=== PATIENT | male | born 1960 | race Caucasian/White ===

== ENCOUNTER 2019-11-22 09:20 | Inpatient (IN) ==
[2019-11-22] MEDS ORDERED: ONDANSETRON INJ 2 MG/ML 2 ML VIAL IV STA ×2 (10:11→12:14)
[2019-11-22] MEDS ORDERED: MoRPHine SULFATE 4 MG/ML 1 ML CARP\\VIAL IV STA ×2 (10:11→11:06)
[2019-11-22] MEDS ORDERED: SODIUM CHLORIDE 0.9% 1000ML 1,000 ML IV SCH (10:12)
[2019-11-22 10:35] LABS: Basophils # (auto) 0.02 K/uL (0-0.2); Basophils % (auto) 0.3 %; Eosinophils # (auto) 0.17 K/uL (0-0.5); Eosinophils % (auto) 2.3 %; Hematocrit (blood only) 36.9 % (42-52); Hemoglobin 12.5 g/dL (14.0-18.0); Immature Granulocytes # (auto) 0.01 K/uL (0.00-0.02); Immature Granulocytes % (auto) 0.1 %; Lymphocytes # (auto) 0.99 K/uL (1.2-3.4); Lymphocytes % (auto) 13.5 %; Mean Corpuscular Hemoglobin 29.4 pg (25-34); Mean Corpuscular Hgb Conc 33.9 g/dL (32-36); Mean Corpuscular Volume 86.8 fL (80-100); Mean Platelet Volume 9.3 fL (7.4-10.4); Monocytes # (auto) 0.63 K/uL (0.11-0.59); Monocytes % (auto) 8.6 %; Neutrophils # (auto) 5.54 K/uL (1.4-6.5); Neutrophils % (auto) 75.2 %; Platelet Count 151 K/uL (130-400); RDW Coefficient of Variation 14.9 % (11.5-14.5); RDW Standard Deviation 47.3 fL (36.4-46.3); Red Blood Count 4.25 M/uL (4.7-6.1); White Blood Count 7.36 K/uL (4.8-10.8)
[2019-11-22 10:37] LABS: Albumin Level 3.9 gm/dl (3.4-5.0); BUN Creatinine Ratio 10.8 (10-20); Calcium 8.7 mg/dl (8.5-10.1); Creatinine Clr Calc Pharmacy 38.4 ml/min; Est GFR (African American) 32.8; Est GFR (Non-African American) 28.3
[2019-11-22 10:40] LABS: Albumin Globulin Ratio 1.1 (0.9-2); Bilirubin,Total 1.7 mg/dl (0.2-1); Globulin 3.4 gm/dl (2.5-4.0); Total Protein 7.3 gm/dl (6.4-8.2)
--- NOTE | 2019-11-22 12:02 | History & Physical Report ---
Date of Service November 22, 2019 Assessment & Plan (1) Left flank pain: Admit to [facility] on telemetry, Vital signs every 4 hours, Continue IV fluid hydration, Consult urology, Final urinary culture is negative, Keep n.p.o. for possible urological procedure, Pain and antinausea management, Discontinue ciprofloxacin which was started in the ER on November 19, DVT prophylaxis SCDs and teds Full code Present on Admission?: Yes (2) Calculus of left ureter: As discussed above (3) Acute on chronic renal insufficiency: Patient has acute on chronic renal insufficiency. Patient baseline creatinine is 1.4-2. He has CKD stage III, Continue IV fluid hydration, Avoid nephrotoxic agents, Continue monitoring creatinine, Resolved underlining problem such as a stone in the ureter and hydronephrosis. Present on Admission?: Yes (4) Elevated prostate specific antigen (PSA): Continue monitoring, Referred to urology Present on Admission?: Yes History of Present Illness Chief Complaint: Left flank pain Primary Care Provider: Marcelino Fuentes MD The patient is a 59 years old male with past medical history of CKD stage III, recurrent nephrolithiasis, elevated prostate-specific antigen who presents to the emergency room with a complaint of left-sided flank pain for 3 days. Patient saw urology on November 20 and he was told to continue p.o. hydration in order to flush out 8 mm distal left ureteral calculus with moderate left hydro- ureteronephrosis. Patient has a history of cystine stones. At that visit patient was agreeable to schedule URS. Urine cultures were also checked and preliminary urine culture showed no growth while the final culture was pending. At that point patient was taking Cipro which was started in the ER. Patient was also given naproxen and Tylenol for pain and he was advised to consider tramadol for moderate pain. He was also recommended to continue Flomax which was p rescribed in the ER. At the end of the visit patient was advised to be seen in the ER if fever, intractable vomiting or pain. Patient denies fever, chills, chest pain, shortness of breath, abdominal pain, frequency, urgency. Labs are reviewed: WBC 7.36, hemoglobin 12.5, hematocrit 36.9, platelets 151, sodium 139, potassium 4, chloride 109, carbon dioxide 24, anion gap 6, BUN 26, creatinine 2.44. Patient baseline creatinine is 1.4 -2. GFR 28.3, glucose 87, calcium 8.7, total bilirubin 1.7, AST 11, ALT 22, alkaline phosphatase 92, total protein 7.3, albumin 3.9, globulin 3.4, prostate-specific antigen from September is 7.91. Urine from November 19 shows trace urine protein, 1+ blood, urine nitrate negative, positive leukocyte Estrace, 2+ positive WBCs over 30, epithelial cells over 30 not a clean-catch. CT pelvis and abdomen shows 8 mm distal left ureteral calculus which results in moderate left hydroureteronephrosis with mild perinephritic infiltration. Left-sided nephrolithiasis. Market right renal atrophy. The decision was made to admit patient to [facility] on telemetry for nephrolithiasis and renal colic. Allergies Allergy/AdvReac Type Severity Reaction Status Date / Time promethazine AdvReac Mild JITTERY,ANX Verified 11/21/19 14:29 IOUS Home Medications Home Medications Medication Instructions Recorded Confirmed Type prednisone 20 mg PO TID 11/12/18 11/22/19 History diphenoxylate-atropine 2.5 1 tab PO QID PRN #30 tab 06/22/19 11/22/19 Rx mg-0.025 mg tablet alfuzosin 10 mg tablet,extended 10 mg PO DAILY #90 tab 11/07/19 11/22/19 Rx release 24 hr ciprofloxacin HCl [Cipro] 500 mg PO Q12H 7 Days #14 tab 11/20/19 11/22/19 Rx naproxen 500 mg PO Q12H PRN #20 tab 11/20/19 11/22/19 Rx ondansetron 4 mg PO Q8H PRN #10 tab 11/20/19 11/22/19 Rx oxycodone 5 mg PO Q6H PRN #12 tab 11/20/19 11/22/19 Rx tamsulosin [Flomax] 0.4 mg PO DAILY #7 cap 11/20/19 11/22/19 Rx Past Med/Surg History Medical History CKD (chronic kidney disease) Crohns disease (Chronic) History of gout Hydronephrosis concurrent with and due to calculi of kidney and ureter Kidney stones (Chronic) Pulmonary emboli Surgical History H/O colectomy (Chronic) H/O cystoscopy for ureteral stones, has had ureteral stents placed before H/O ileostomy (Chronic) Family History Brother , due to stomach cancer Stomach cancer Father Myocardial infarction Mother Breast cancer Sister Pulmonary embolism Other FHx: heart disease Family history of diabetes mellitus Family history of high blood pressure Family history of kidney stones Social History Preferred Language: Hebrew Communication Ability: Effective Environmental Services Aide Required: No Beliefs That Will Affect Care: None Current Living Situation: Spouse Feels Safe at Home: Yes Smoking Status: Never smoker Hx Alcohol Use: No Hx Substance Use: No Review of Systems Review of Systems: All systems reviewed & are unremarkable except as noted in HPI & below Physical Exam Constitutional: WD/WN, vitals as above well developed Eyes: PERRL, conjunctivae normal, anicteric sclerae ENMT: external ear and nose normal, oropharynx normal Neck: trachea midline, no thyromegaly Respiratory: normal respiratory effort, lungs clear to auscultation Cardiovascular: RRR, no murmur, no edema Gastrointestinal (Abdomen): normal bowel sounds, soft, nontender, no hepatosplenomegaly Musculoskeletal: no cyanosis or clubbing, extremities motor strength 5/5 Skin: no rashes, warm and dry Neurologic: patellar DTR's 2+ bilat, sensation intact Psychiatric: A+Ox3, euthymic affect Genitourinary: Left costovertebral angle tenderness Results & Data Vital Signs (Past 12 Hours) Vital Signs Temp Pulse Pulse Resp BP BP Pulse Ox 11/22/19 11:12 60 17 140/74 99 11/22/19 09:28 36.4 C L 64 20 150/87 H 100 Code Status & VTE Plan Code Status Full code VTE Prophylaxis Plan VTE Prophylaxis will be ordered: Yes PG Care Time/CCT Total # of Minutes Spent Total Time Spent with Patient: Total time spent is greater than 50% in coordina tion of care (as documented) at patient's floor/unit and/or counseling patient: Coding Level of Care Code 70606 Initial Inpt Care Lvl 3 Diagnoses Left flank pain R10.9 Calculus of left ureter N20.1 Acute on chronic renal insufficiency N28.9; N18.9 Elevated prostate specific antigen (PSA) R97.20
[2019-11-22] MEDS: HYDROmorphone INJ 0.5 MG/0.5 ML SYR IV PRN ×5 (12:20→22:10)
[2019-11-22] MEDS ORDERED: ACETAMINOPHEN 325 MG TAB PO PRN (17:37)
[2019-11-22] MEDS ORDERED: predniSONE 20 MG TAB PO SCH (17:37)
[2019-11-22] MEDS ORDERED: DIPHENOXYLATE/ATROPINE 2.5/0.025MG TAB PO PRN (17:37)
[2019-11-22] MEDS ORDERED: MAGNESIUM HYDROXIDE SUSP 30 ML UDC PO PRN (17:37)
[2019-11-22] MEDS ORDERED: ALUMINUM/MAGNESIUM SUSP 30 ML UDC PO PRN (17:37)
[2019-11-22] MEDS ORDERED: POLYETHYLENE (MIRALAX) 17 GM PACK PO PRN (17:37)
[2019-11-22] MEDS: SODIUM CHLORIDE 0.9% 1000ML 1,000 ML IV SCH (18:22)
[2019-11-22] MEDS: ONDANSETRON INJ 2 MG/ML 2 ML VIAL IV PRN (18:26)
[2019-11-22] MEDS: TAMSULOSIN HCL 0.4 MG CAP PO SCH (19:15)
[2019-11-23] MEDS: HYDROmorphone INJ 0.5 MG/0.5 ML SYR IV PRN ×5 (00:11→11:00)
[2019-11-23] MEDS: ONDANSETRON INJ 2 MG/ML 2 ML VIAL IV PRN ×2 (02:24→07:36)
[2019-11-23] MEDS: SODIUM CHLORIDE 0.9% 1000ML 1,000 ML IV SCH ×3 (02:25→23:23)
[2019-11-23 07:09] LABS: Basophils # (auto) 0.01 K/uL (0-0.2); Basophils % (auto) 0.1 %; Eosinophils # (auto) 0.12 K/uL (0-0.5); Eosinophils % (auto) 1.3 %; Hemoglobin 12.3 g/dL (14.0-18.0); Immature Granulocytes # (auto) 0.01 K/uL (0.00-0.02); Immature Granulocytes % (auto) 0.1 %; Lymphocytes # (auto) 0.69 K/uL (1.2-3.4); Lymphocytes % (auto) 7.6 %; Mean Corpuscular Hemoglobin 29.3 pg (25-34); Mean Corpuscular Hgb Conc 33.2 g/dL (32-36); Mean Corpuscular Volume 88.1 fL (80-100); Mean Platelet Volume 9.4 fL (7.4-10.4); Monocytes # (auto) 0.68 K/uL (0.11-0.59); Monocytes % (auto) 7.5 %; Neutrophils % (auto) 83.4 %; Platelet Count 137 K/uL (130-400); RDW Coefficient of Variation 14.9 % (11.5-14.5); RDW Standard Deviation 48.1 fL (36.4-46.3); White Blood Count 9.11 K/uL (4.8-10.8)
[2019-11-23 07:48] LABS: Albumin Level 3.4 gm/dl (3.4-5.0); BUN Creatinine Ratio 7.5 (10-20); Calcium 8.3 mg/dl (8.5-10.1); Creatinine Clr Calc Pharmacy 22.9 ml/min; Est GFR (African American) 17.6; Est GFR (Non-African American) 15.2; Potassium 4.4 mmol/L (3.5-5.1)
[2019-11-23 07:51] LABS: Bilirubin,Total 1.9 mg/dl (0.2-1); Globulin 3.4 gm/dl (2.5-4.0); Total Protein 6.8 gm/dl (6.4-8.2)
--- NOTE | 2019-11-23 07:58 | Urology Consultation ---
Date of Consultation November 23, 2019 Assessment & Plan (1) Calculus of distal left ureter: (2) Acute on chronic renal insufficiency: (3) Hydronephrosis of left kidney: 59 year-old male patient admitted with intractable pain and vomiting secondary to 8mm left distal ureteral stone with moderate hydronephrosis. -Keep NPO -Strain all urine -Proceed for intervention today. Findings reviewed with Dr. Ng. Given his intractable pain/vomiting and renal insufficiency in the context of an obstructing 8mm left distal ureteral stone, will proceed with OR for cystoscopy, left retrograde pyelogram and left stent placement, possible ureteroscopy, laser lithotripsy, stone basketing, possible ureteral dilation depending on findings. Risks and benefits to be reviewed with patient by Dr. Ng. OR notified. Preoperative CXR and EKG ordered. Will cover with renal dosing IV Ciprofloxacin preoperatively. Supervising Physician Co-Signing Physician Notes distal stone plan for treatment consent on chart to OR today History of Present Illness Reason for Consultation: nephrolithiasis Attending Physician: Ho Pepe DO History of Present Illness 59 year-old male patient, with past medical history of CKD stage III, recurrent nephrolithiasis, and elevated prostate-specific antigen admitted November 22, 2019 with left flank pain, acute on chronic renal insufficiency, and intractable vomiting. Urology service consulted due to obstructing 8mm left distal ureteral stone. Patient known to [facility] urology, was seen in the office yesterday and scheduled for URS-LL December 04, 2019. Does have history of renal calculi requiring intervention, last URS-LL roughly one year ago. Patient reports he returned home last evening and developed severe left flank/abdomen pain not relieved by PO pain medication. He then started to vomit every 15 minutes on average. Denied fevers. Chart Review: wbc 9.11 hgb 12.3 creatinine 4.08 urinalysis not indicative of infection Urine culture from 11/[address]/abd pelvis impression: 1. 8 mm distal left ureteral calculus which results in moderate left hydroureteronephrosis with mild perinephric infiltration. 2. Left-sided nephrolithiasis. 3. Marked right renal atrophy. Patient examined at bedside. Patient examined at bedside. He is alert, awake, non-toxic appearing. States his pain is not controlled, has been using IV Dilaudid. Pain is located in left flank and extends into lower abdomen. Has been vomiting with elevated pain intermittently throughout the morning. Denies fevers or chills. Denies dysuria or hematuria. Denies frequency but does report hesitancy. He is requesting p rocedure be performed today due to amount of pain. Denies additional acute urologic concerns today. Allergies Allergy/AdvReac Type Severity Reaction Status Date / Time promethazine AdvReac Mild JITTERY,ANX Verified 11/21/19 14:29 IOUS Home Medications Home Medications Medication Instructions Recorded Confirmed Type prednisone 20 mg PO TID 11/12/18 11/22/19 History diphenoxylate-atropine 2.5 1 tab PO QID PRN #30 tab 06/22/19 11/22/19 Rx mg-0.025 mg tablet alfuzosin 10 mg tablet,extended 10 mg PO DAILY #90 tab 11/07/19 11/22/19 Rx release 24 hr ciprofloxacin HCl [Cipro] 500 mg PO Q12H 7 Days #14 tab 11/20/19 11/22/19 Rx naproxen 500 mg PO Q12H PRN #20 tab 11/20/19 11/22/19 Rx ondansetron 4 mg PO Q8H PRN #10 tab 11/20/19 11/22/19 Rx oxycodone 5 mg PO Q6H PRN #12 tab 11/20/19 11/22/19 Rx tamsulosin [Flomax] 0.4 mg PO DAILY #7 cap 11/20/19 11/22/19 Rx Patient History Medical History CKD (chronic kidney disease) Crohns disease (Chronic) History of gout Hydronephrosis concurrent with and due to calculi of kidney and ureter Kidney stones (Chronic) Pulmonary emboli Surgical History H/O colectomy (Chronic) H/O cystoscopy for ureteral stones, has had ureteral stents placed before H/O ileostomy (Chronic) Family History Brother , due to stomach cancer Stomach cancer Father Myocardial infarction Mother Breast cancer Sister Pulmonary embolism Other FHx: heart disease Family history of diabetes mellitus Family history of high blood pressure Family history of kidney stones Social History Preferred Language: South Korean Communication Ability: 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 Beliefs That Will Affect Care: None marital status: Current Living Situation: Spouse Feels Safe at Home: Yes Smoking Status: Never smoker Hx Alcohol Use: No Hx Substance Use: No Review of Systems Constitutional: as per Subjective / HPI; no fever and no chills Respiratory: no cough and no dyspnea Gastrointestinal: as per Subjective / HPI, + nausea and + vomiting Genitourinary: + as per Subjective / HPI Neurologic: no dizziness and no syncope Physical Exam Constitutional: well developed and well nourished; no acute distress and not ill appearing ENMT: Ears: no external ear abnormality Nose: no external nose abnormality Neck: normal visual inspection and trachea midline Respiratory: normal respiratory effort and able to speak in complete sentences; no respiratory distress and no audible wheezes Cardiovascular: Extremities: no calf tenderness and no edema Gastrointestinal (Abdomen): Inspection/Auscultation: abdomen normal to inspection; abdomen not distended Percussion/Palpation: + abdomen tender (Mildly tender to left lower quadrant) and abdomen soft; no guarding Musculoskeletal: Moves all extremities without difficulty. Skin: No visible rashes, lesions, or wounds noted. Neurologic: moves all extremities and awake Psychiatric: Orientation: alert, oriented x 3 and cooperative Affect: euthymic affect Genitourinary: + CVA tenderness (Positive left CVA tenderness) Results & Data Vital Signs (Past 12 Hours) Vital Signs Temp Pulse Pulse Resp BP Pulse Ox 11/23/19 07:14 36.6 C 70 18 118/69 96 11/23/19 06:59 60 11/23/19 03:00 36.5 C 66 20 131/75 97 11/23/19 00:48 55 L 11/22/19 23:00 36.6 C 63 20 149/73 H 96 PG Care Time/CCT Total # of Minutes Spent Total Time Spent with Patient: Total time spent is greater than 50% in coordination of care (as documented) at patient's floor/unit and/or counseling patient: Coding Level of Care Code 86426 Inpt Consult Level 3 Diagnoses Calculus of distal left ureter N20.1 Acute on chronic renal insufficiency N28.9; N18.9 Hydronephrosis of left kidney N13.30
--- NOTE | 2019-11-23 08:29 | XRay Report ---
XR chest 2V PA/lateral CLINICAL HISTORY: 59 years-old Male presenting with preop. TECHNIQUE: PA and lateral views of the chest were obtained. COMPARISON: 09/18/2010. FINDINGS: Cardiomediastinal silhouette normal. Lungs and pleural spaces clear. Degenerative changes of the thor acic spine. Surgical clip may be present in the right axilla. Upper abdomen normal. IMPRESSION: 1. No acute cardiopulmonary disease. ACT 112: Negative or not required by law. Electronically signed by: Bethel Carter M.D. 11/23/2019 8:27 AM
[2019-11-23] MEDS ORDERED: CIPROFLOXACIN / D5W 200 MG/100 ML BAG IV SCH (09:00)
[2019-11-23] MEDS: TAMSULOSIN HCL 0.4 MG CAP PO SCH (11:03)
[2019-11-23] MEDS: ALFUZOSIN HCL 10 MG TAB PO SCH (11:04)
--- NOTE | 2019-11-23 12:43 | Anesthesiology Consultation ---
Date of Service November 23, 2019 Assessment & Plan (1) Encounter for pre-operative examination: Chart Review Chart Review: Acceptable Risk for Surgery Consults Requested none ASA ASA3 Proposed Anesthesia Anesthesia Type: General Risk / Benefits Reviewed With: PT / POA / Parent / Guardian, Accepts Plan and Informed Consent Obtained History Surgery Operation Date: 11/23/19 16:25 Proposed Procedures p Cystoscopy Retrograde Pyelogram, Left Stent Placement, Possible Laser Lithotripsy Basket Extraction - Rich Ng MD Height/Weight Height: 5 ft 10 in Weight: 93 kg Allergies Allergy/AdvReac Type Severity Reaction Status Date / Time promethazine AdvReac Mild JITTERY,ANX Verified 11/21/19 14:29 IOUS Medications Home Medications Medication Instructions Recorded Confirmed Last Taken prednisone 20 mg PO TID 11/12/18 11/22/19 Unknown diphenoxylate-atropine 2.5 1 tab PO QID PRN #30 tab 06/22/19 11/22/19 11/22/19 mg-0.025 mg tablet alfuzosin 10 mg tablet,extended 10 mg PO DAILY #90 tab 11/07/19 11/22/19 Unknown release 24 hr ciprofloxacin HCl [Cipro] 500 mg PO Q12H 7 Days #14 tab 11/20/19 11/22/19 11/22/19 naproxen 500 mg PO Q12H PRN #20 tab 11/20/19 11/22/19 11/22/19 ondansetron 4 mg PO Q8H PRN #10 tab 11/20/19 11/22/19 11/22/19 oxycodone 5 mg PO Q6H PRN #12 tab 11/20/19 11/22/19 11/22/19 tamsulosin [Flomax] 0.4 mg PO DAILY #7 cap 11/20/19 11/22/19 Unknown Active Medications Generic Name Dose Route Start Last Admin Trade Name Freq PRN Reason Stop Dose Admin Alfuzosin HCl 10 mg 11/23/19 09:00 11/23/19 11:04 Uroxatral PO 12/23/19 08:59 10 mg DAILY MEGAN Administration Hydromorphone HCl 0.5 mg 11/22/19 17:37 11/23/19 11:00 Dilaudid IV 12/06/19 17:36 0.5 mg Q2H PRN Administration Pain Sodium Chloride 1,000 mls @ 100 mls/hr 11/22/19 17:37 11/23/19 12:35 Nss 1000ml IV 12/22/19 17:36 Infused .Q10H MEGAN Infusion Ondansetron HCl 4 mg 11/22/19 17:37 11/23/19 07:36 Zofran IV 12/22/19 17:36 4 mg Q4H PRN Administration nausea Tamsulosin HCl 0.4 mg 11/22/19 17:37 11/23/19 11:03 Flomax PO 12/22/19 17:36 0.4 mg DAILY MEGAN Administration NPO Date Last Intake of Fluids: 11/23/19 Time Last Intake of Fluids: 11:09 Last Intake of Fluids Comment: Small sips w/meds. Date Last Intake of Solids: 11/21/19 Time Last Intake of Solids: 00:00 Last Intake of Solids Comment: midnight per report from metal coater RN. Past Medical History Medical History CKD (chronic kidney disease) Crohns disease (Chronic) History of gout Hydronephrosis concurrent with and due to calculi of kidney and ureter Kidney stones (Chronic) Pulmonary emboli Exercise / Class Metabolic Activity II 4-5 Yardwork/Stairs/Walk up hill Past Family History Family History Brother , due to stomach cancer Stomach cancer Father Myocardial infarction Mother Breast cancer Sister Pulmonary embolism Other FHx: heart disease Family history of diabetes mellitus Family history of high blood pressure Family history of kidney stones Past Surgical History Surgical History H/O colectomy (Chronic) H/O cystoscopy for ureteral stones, has had ureteral stents placed before H/O ileostomy (Chronic) Past Anesthesia History No Hx of Anesthesia Complications and No Family Hx of Anesthesia Complications History of PONV No Hx of PONV and No Hx of Motion Sickness Social History Smoking Status: Never smoker Do You Dip or Chew Tobacco: No Hx Alcohol Use: No Hx Substance Use: No Physical Exam Vital Signs Last Vital Signs Temp 98.1 F 11/23/19 11:23 Pulse 69 11/23/19 11:23 Resp 18 11/23/19 11:23 BP 133/69 11/23/19 11:23 Pulse Ox 99 11/23/19 11:23 ENMT Mouth: no dentition abnormality Thyromental Distance: > or= 3.5 Finger Breadths Mallampati Class: II Neck normal visual inspection Respiratory normal respiratory effort Auscultation: lungs clear to auscultation bilaterally Cardiovascular Rate/Rhythm: regular rate and regular rhythm Testing Laboratory Results 11/23/19 06:23 11/23/19 06:23 Electrocardiogram Date: 11/13/19 Sinus bradycardia, rate 56 bpm Otherwise normal ECG When compared with ECG of 14-DEC-2014 09:49, No significant change was found Confirmed by Silver Hopkins ([id number]) on 11/14/2018 5:17:26 PM Chest X-Ray Date: 11/23/19 Findings: + NAD
[2019-11-23] MEDS ORDERED: fentaNYL citrate 100 MCG/2 ML VIAL IV PRN (12:53)
[2019-11-23] MEDS ORDERED: ePHEDrine sulfate 50 MG/ML AMP IV PRN (12:53)
[2019-11-23] MEDS ORDERED: ONDANSETRON INJ 2 MG/ML 2 ML VIAL IV PRN (12:53)
[2019-11-23] MEDS ORDERED: ATROPINE SULFATE 0.1 MG/ML 10ML SYR IV PRN (12:53)
[2019-11-23] MEDS ORDERED: ONDANSETRON INJ 2 MG/ML 2 ML VIAL ONE (13:38)
[2019-11-23] MEDS ORDERED: DEXAMETHASONE SOD INJ 4 MG/ML VIAL ONE (13:38)
[2019-11-23] MEDS ORDERED: PROPOFOL IV EMULSION 10 MG/ML 20 ML VIAL IV ONE (13:38)
[2019-11-23] MEDS ORDERED: fentaNYL citrate 100 MCG/2 ML VIAL ONE (13:38)
[2019-11-23] MEDS ORDERED: LIDOCAINE HCL 2% 2 ML VIAL/AMP(20MG/ML) INFIL ONE (13:38)
[2019-11-23] MEDS ORDERED: NEOSTIGMINE METHYLSULFATE 5 MG/5 ML SYR ONE (13:38)
[2019-11-23] MEDS ORDERED: MIDAZOLAM HCL 1 MG/ML 2ML VIAL ONE (13:38)
[2019-11-23] MEDS ORDERED: GLYCOPYRROLATE 0.2 MG/ML VIAL ONE (13:38)
[2019-11-23] MEDS ORDERED: IOTHALAMATE MEGLUMINE II 17.2% 250 ML VIAL ONE (13:41)
--- NOTE | 2019-11-23 15:07 | Fluoroscopy Report ---
FL retrograde includes kub CLINICAL HISTORY: 59 years-old Male presenting with CYSTO. TECHNIQUE: 1 fluoroscopic image(s) recorded as part of an intraoperative procedure. COMPARISON: CT performed on 11/20/2019. FINDINGS/IMPRESSION: Interval placement of a left ureteral stent. Please see surgical report for further details. Dose area product (mGy.cm^2): 0.5594. Fluoroscopy time: 3.8 seconds. Number or time of high level fluoroscopy (HLF), digital spot, or digital subtraction images: 0. ACT 112: Negative or not required by law. Results electronically sent 11/23/2019 3:06 PM to: Rich Ng MD Electronically signed by: Bethel Carter M.D. 11/23/2019 3:06 PM
--- NOTE | 2019-11-23 15:24 | Operative Report ---
PG Post Operative Report Pre & Post Diagnosis Operation Date: 11/23/19 16:25 Pre-Op Diagnosis: NEPHROLITHIASIS Post-Op Diagnosis: NEPHROLITHIASIS I identified the patient and participated in the time-out.: Yes Procedure Operation Date: 11/23/19 16:25 Actual Procedures p Cystoscopy Retrograde Pyelogram, Left Stent Placement, Laser Lithotripsy (Left) - Rich Ng MD Surgeon Silver Ng MD Manager Clinical Applications None Estimated Blood Loss 0 Findings Consistent with Post-Op Diagnosis Specimens Stone for chemical analysis Description of Procedure The patient was identified in the preoperative holding area, appropriate informed consents were reviewed and completed and the patient was transferred to the operative suite. Upon arrival, appropriate antibiotics and anesthesia were administered and the patient was placed in dorsal lithotomy position and prepped and draped in sterile fashion. To begin the case I passed a 22 Jamaican cystoscope with 30 degree lens. Inspection revealed a healthy-appearing urethra and moderate enlargement of the prostate. Inspection of the bladder revealed healthy mucosa without tumors. I turned my attention to the left UO which was notably bulged. I cannulated with a sensor wire which immediately resulted in an output of old urine from the left ureteral orifice. After draining this area I passed a semirigid ureteroscope alongside the wire and encountered a large calculus in the extreme distal aspect of the ureter. I passed a laser fiber and fragmented it irrigating all pieces out of the ureter. In conclusion I placed a 6 Jamaican by 26 cm double-J ureteral stent seeing a good curl in the kidney as well as the bladder. I decompressed the bladder and irrigated several pieces out which was subsequently passed off the table as a specimen for chemical analysis. Case was concluded and he was extubated and taken to the PACU in stable condition. There were no comp lications. I attest to the content of the Intraoperative Record and any orders documented therein. Any exceptions are noted below.
--- NOTE | 2019-11-23 15:26 | History & Physical Report ---
Date of Service November 23, 2019 Assessment & Plan (1) Meatal stenosis: (2) Urethral stricture: Plan for meatotomy/meatoplasty/cystoscopy/DVIU Risks, benefits, alternatives discussedpatient ready to move forward with the surgery History of Present Illness Primary Care Provider: Marcelino Fuentes MD long history of meatal stenosis as well as urethral strictures He is recently experienced increasing symptoms and noted to have a very tight meatus during office examination He returns today for meatotomy/meatoplasty and possible DVIU Allergies Allergy/AdvReac Type Severity Reaction Status Date / Time promethazine AdvReac Mild JITTERY,ANX Verified 11/21/19 14:29 IOUS Home Medications Home Medications Medication Instructions Recorded Confirmed Type prednisone 20 mg PO TID 11/12/18 11/22/19 History diphenoxylate-atropine 2.5 1 tab PO QID PRN #30 tab 06/22/19 11/22/19 Rx mg-0.025 mg tablet alfuzosin 10 mg tablet,extended 10 mg PO DAILY #90 tab 11/07/19 11/22/19 Rx release 24 hr ciprofloxacin HCl [Cipro] 500 mg PO Q12H 7 Days #14 tab 11/20/19 11/22/19 Rx naproxen 500 mg PO Q12H PRN #20 tab 11/20/19 11/22/19 Rx ondansetron 4 mg PO Q8H PRN #10 tab 11/20/19 11/22/19 Rx oxycodone 5 mg PO Q6H PRN #12 tab 11/20/19 11/22/19 Rx tamsulosin [Flomax] 0.4 mg PO DAILY #7 cap 11/20/19 11/22/19 Rx Past Med/Surg History Medical History CKD (chronic kidney disease) Crohns disease (Chronic) History of gout Hydronephrosis concurrent with and due to calculi of kidney and ureter Kidney stones (Chronic) Pulmonary emboli Surgical History H/O colectomy (Chronic) H/O cystoscopy for ureteral stones, has had ureteral stents placed before H/O ileostomy (Chronic) Family History Brother , due to stomach cancer Stomach cancer Father Myocardial infarction Mother Breast cancer Sister Pulmonary embolism Other FHx: heart disease Family history of diabetes mellitus Family history of high blood pressure Family history of kidney stones Social History Preferred Language: Urdu Communication Ability: Effective 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 Beliefs That Will Affect Care: None marital status: Current Living Situation: Spouse Feels Safe at Home: Yes Smoking Status: Never smoker Hx Alcohol Use: No Hx Substance Use: No Review of Systems All systems reviewed & are unremarkable except as noted in HPI & below Physical Exam Constitutional: well developed and well nourished Neck: neck nontender Respiratory: normal respiratory effort; no respiratory distress and does not use accessory muscles Cardiovascular: Rate/Rhythm: regular rate Vessels: radial pulses present Extremities: no edema Gastrointestinal (Abdomen): Inspection/Auscultation: abdomen normal to inspection Percussion/Palpation: abdomen soft; abdomen nontender and no guarding Musculoskeletal: Head/Neck/Chest: normocephalic and head atraumatic Extremities: extremities normal to inspection Skin: no rashes and no lesions Trauma: no evidence of skin trauma Neurologic: awake; not obtunded Speech / Cognition: normal speech Motor/Sensory: no tremor Psychiatric: Orientation: alert and oriented x 3 Genitourinary: no CVA tenderness Lymphatic: no lymphadenopathy Results & Data Vital Signs (Past 12 Hours) Vital Signs Temp Pulse Pulse Pulse Resp BP Pulse Ox 11/23/19 15:15 37.7 C H 78 14 132/78 95 11/23/19 15:05 78 14 128/72 98 11/23/19 14:55 91 H 15 130/77 95 11/23/19 14:47 36.7 C 100 H 16 127/77 97 11/23/19 13:02 36.7 C 72 18 147/78 H 100 11/23/19 11:23 36.7 C 69 18 133/69 99 11/23/19 07:14 36.6 C 70 18 118/69 96 11/23/19 06:59 60 Code Status & VTE Plan VTE Prophylaxis Plan VTE Prophylaxis will be ordered: Yes
[2019-11-23] MEDS ORDERED: OXYCODONE HCL IR 5 MG TAB (IMMEDIATE RELEASE) PO PRN (15:29)
[2019-11-23] MEDS ORDERED: ONDANSETRON 4 MG OD TAB PO PRN (15:29)
--- NOTE | 2019-11-23 15:30 | Anesthesiology Progress Note ---
Date of Service November 23, 2019 Anesthesia Post Procedure Vital Signs Vital Signs: Temp Pulse Pulse Pulse Resp BP Pulse Ox 11/23/19 15:25 99.9 F H 72 13 125/71 95 11/23/19 15:15 99.9 F H 78 14 132/78 95 11/23/19 15:05 78 14 128/72 98 11/23/19 14:55 91 H 15 130/77 95 11/23/19 14:47 98.1 F 100 H 16 127/77 97 11/23/19 13:02 98.1 F 72 18 147/78 H 100 11/23/19 11:23 98.1 F 69 18 133/69 99 11/23/19 07:14 97.9 F 70 18 118/69 96 11/23/19 06:59 60 11/23/19 03:00 97.7 F 66 20 131/75 97 11/23/19 00:48 55 L 11/22/19 23:00 97.9 F 63 20 149/73 H 96 11/22/19 19:00 97.9 F 58 L 20 135/77 97 11/22/19 17:39 97.5 F L 68 20 146/85 H 11/22/19 17:00 81 17 138/67 95 Pain Intensity Left Flank: Pain Intensity: 0 Transfer of Care Handoff Completed per policy Notes Mental Status: alert / awake / arousable and participated in evaluation Patient Amnestic to Procedure: Yes Nausea / Vomiting: adequately controlled Pain: adequately controlled Airway Patency, RR, SpO2: stable & adequate BP & HR: stable & adequate Hydration State: stable & adequate Anesthetic Complications: no major complications apparent and Pt Satisfied with anesthetic care
[2019-11-23] MEDS ORDERED: CIPROFLOXACIN 500 MG TAB PO SCH (16:30)
--- NOTE | 2019-11-23 16:33 | Hospitalist Progress Note ---
Date of Service November 23, 2019 Assessment & Plan (1) Left flank pain: due to large, obstructing left ureteral stone evidence of KENTRELL, no evidence of UTI (urine culture on 11/19 was negative for growth) cystoscopy with stent placement and lithotripsy on 11/[address] Ng pain is significantly improved after procedure no hematuria still not making much urine, will follow closely continue fluids at NSS 100cc/hr (2) Calculus of left ureter: As discussed above s/p cystoscopy with stent and lithotripsy pain much better (3) Acute on chronic renal insufficiency: Patient has acute on chronic renal insufficiency, POA, Cr up to 2.4 Patient baseline creatinine is 1.4-2. 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 his Cr salud to 4 this morning from 2.44, however the BUN was only 31, likely obstructive will repeat BMP this evening WBC normal, K 4.4 Review of Systems Review of Systems: All systems reviewed & are unremarkable except as noted in HPI & below Constitutional: + chills and + fatigue; no fever and no sweats Respiratory: no cough and no dyspnea Cardiovascular: no chest pain and no edema Genitourinary: + flank pain (left side, much better); no hematuria Physical Exam Constitutional: well developed, well nourished, + ill appearing and + diaphoretic; no acute distress Eyes: PERRL, conjunctivae normal, anicteric sclerae ENMT: external ear and nose normal, oropharynx normal Neck: trachea midline, no thyromegaly Respiratory: normal respiratory effort, lungs clear to auscultation Cardiovascular: RRR, no murmur, no edema Gastrointestinal (Abdomen): normal bowel sounds, soft, nontender, no hepatosplenomegaly Musculoskeletal: no cyanosis or clubbing, extremities motor strength 5/5 Skin: no rashes, warm and dry Neurologic: patellar DTR's 2+ bilat, sensation intact and PERRL, EOMI, accommodation nl, no face palsy, no dysarthria Psychiatric: A+Ox3, euthymic affect Lymphatic: no cervical or axillary lymphadenopathy Results & Data ([facility]) Vital Signs (Past 12 Hours) Vital Signs Temp Pulse Pulse Pulse Resp BP Pulse Ox 11/23/19 16:00 36.6 C 70 16 135/76 97 11/23/19 15:42 36.9 C 82 18 132/75 95 11/23/19 15:25 37.7 C H 72 13 125/71 95 11/23/19 15:15 37.7 C H 78 14 132/78 95 11/23/19 15:05 78 14 128/72 98 11/23/19 14:55 91 H 15 130/77 95 11/23/19 14:47 36.7 C 100 H 16 127/77 97 11/23/19 13:02 36.7 C 72 18 147/78 H 100 11/23/19 11:23 36.7 C 69 18 133/69 99 11/23/19 07:14 36.6 C 70 18 118/69 96 11/23/19 06:59 60 Laboratory Results Laboratory Results - last 24 hr 11/23/19 11/23/19 11/23/19 06:23 06:23 14:30 WBC 9.11 RBC 4.20 L Hgb 12.3 L Hct 37.0 L MCV 88.1 MCH 29.3 MCHC 33.2 RDW Std Deviation 48.1 H RDW Coeff of Bradley 14.9 H Plt Count 137 MPV 9.4 Immature Gran % (Auto) 0.1 Neut % (Auto) 83.4 Lymph % (Auto) 7.6 [place] % (Auto) 7.5 Eos % (Auto) 1.3 Baso % (Auto) 0.1 Immature Gran # (Auto) 0.01 Neut # (Auto) 7.60 H Lymph # (Auto) 0.69 L [place] # (Auto) 0.68 H Eos # (Auto) 0.12 Baso # (Auto) 0.01 Sodium 140 Potassium 4.4 Chloride 111 H Carbon Dioxide 23 Anion Gap 6.0 BUN 31 H Creatinine 4.08 H D Est Cr Clr Drug Dosing 22.9 Est GFR ( Amer) 17.6 Est GFR (Non-Af Amer) 15.2 BUN/Creatinine Ratio 7.5 L Glucose 97 Calcium 8.3 L Total Bilirubin 1.9 H AST 11 L ALT 19 Alkaline Phosphatase 93 Total Protein 6.8 Albumin 3.4 Globulin 3.4 Albumin/Globulin Ratio 1.0 Stone Source Pending Stone Weight Pending Stone Composition Pending Stone Composition 2 Pending Major Stone Nidus Pending Medications Administered Current Inpatient Medications Acetaminophen (Tylenol) 650 mg PO Q4H PRN PRN Reason: Pain or Fever Stop: 12/22/19 17:36 Al Hydrox/Mg Hydrox/Simethicone (Maalox) 15 ml PO Q4H PRN PRN Reason: Dyspepsia Stop: 12/22/19 17:36 Alfuzosin HCl (Uroxatral) 10 mg PO DAILY [facility] Stop: 12/23/19 08:59 Last Admin: 11/23/19 11:04 Dose: 10 mg Documented by: Ciprofloxacin (Cipro) 500 mg PO Q12 MEGAN Stop: 11/23/19 18:00 Last Admin: 11/23/19 16:16 Dose: 500 mg Documented by: Ciprofloxacin (Cipro) 500 mg PO Q12H [facility] Stop: 11/28/19 16:29 Diphenoxylate HCl/Atropine (Lomotil) 1 tab PO QID PRN PRN Reason: diarrhea Stop: 12/22/19 17:36 Hydromorphone HCl (Dilaudid) 0.5 mg IV Q2H PRN PRN Reason: Pain Stop: 12/06/19 17:36 Last Admin: 11/23/19 11:00 Dose: 0.5 mg Documented by: Sodium Chloride (Nss 1000ml) 1,000 mls @ 100 mls/hr IV .Q10H MEGAN Stop: 12/22/19 17:36 Last Admin: 11/23/19 12:40 Dose: 100 mls/hr Documented by: Magnesium Hydroxide (Milk Of Magnesia) 30 ml PO Q12H PRN PRN Reason: Constipation Stop: 12/22/19 17:36 Ondansetron HCl (Zofran) 4 mg IV Q4H PRN PRN Reason: nausea Stop: 12/22/19 17:36 Last Admin: 11/23/19 07:36 Dose: 4 mg Documented by: Ondansetron HCl (Zofran Odt) 4 mg PO Q8H PRN PRN Reason: nausea and vomiting Stop: 12/23/19 15:28 Oxycodone HCl (Roxicodone Immediate Rel) 5 mg PO Q6H PRN PRN Reason: pain, severe Stop: 12/07/19 15:28 Polyethylene Glycol (Miralax Powder Packet) 17 gm PO DAILY PRN PRN Reason: Constipation Stop: 12/22/19 17:36 Tamsulosin HCl (Flomax) 0.4 mg PO DAILY MEGAN Stop: 12/22/19 17:36 Last Admin: 11/23/19 11:03 Dose: 0.4 mg Documented by: PG Care Time/CCT Total # of Minutes Spent Total Time Spent with Patient: Total time spent is greater than 50% in coordination of care (as documented) at patient's floor/unit and/or counseling patient: Coding Level of Care Code 28191 Subseq Hosp Care Lvl 3 Diagnoses Left flank pain R10.9 Calculus of left ureter N20.1 Acute on chronic renal insufficiency N28.9; N18.9 Elevated prostate specific antigen (PSA) R97.20
--- NOTE | 2019-11-23 16:57 | Emergency Department Note ---
Entered by Keri Bartholomew acting as a scribe for History of Present Illness General Chief complaint: Kidney Stone Stated complaint: JASON STONE Time Seen by Provider: 11/22/19 09:44 Source: patient History of Present Illness Onset (ago): hour(s) (0200 this morning) Location: left (flank) Radiation: other (left side of abdomen) Severity: similar to prior episodes Pain Consistency: + constant (constant, worsening) Maximum Pain Intensity: 10 Quality: + other (flank pain) Relieved By: not by medication (Naproxen, Oxycodone) Associated symptoms: + nausea/vomiting and + other (left sided flank pain, abdominal pain); no fever/chills The patient is a 59 year old male presenting to the Emergency Department com plaining of worsening flank pain starting at 0200 this morning. The patient reports that he has constant left sided flank pain that is radiating to the left side of his abdomen. He states that he was diagnosed with a left sided 8mm kidney stone 2 days ago. He explains that he was discharged home with Naproxen and Oxycodone and has an appointment with Dr. Benjamin urologist in 2 weeks. He notes that he has been taking Naproxen and Oxycodone neither of which have improved his pain. He adds that nothing improves his pain. The patient reports that he has experienced these symptoms before as he has a history of kidney stones. Patient states these were thought to be secondary to his Crohn's d isease. He states that he has lost his appetite and vomiting. He notes that he took his medications this morning but that he thinks he vomited all of them back up. He denies fevers and chills. Patient was also discharged on ciprofloxacin, Flomax, and Zofran. Home Medications Home Medications Medication Instructions Recorded Confirmed Type prednisone 20 mg PO TID 11/12/18 11/22/19 History diphenoxylate-atropine 2.5 1 tab PO QID PRN #30 tab 06/22/19 11/22/19 Rx mg-0.025 mg tablet alfuzosin 10 mg tablet,extended 10 mg PO DAILY #90 tab 11/07/19 11/22/19 Rx release 24 hr ciprofloxacin HCl [Cipro] 500 mg PO Q12H 7 Days #14 tab 11/20/19 11/22/19 Rx naproxen 500 mg PO Q12H PRN #20 tab 11/20/19 11/22/19 Rx ondansetron 4 mg PO Q8H PRN #10 tab 11/20/19 11/22/19 Rx oxycodone 5 mg PO Q6H PRN #12 tab 11/20/19 11/22/19 Rx tamsulosin [Flomax] 0.4 mg PO DAILY #7 cap 11/20/19 11/22/19 Rx Allergies Allergy/AdvReac Type Severity Reaction Status Date / Time promethazine AdvReac Mild JITTERY,ANX Verified 11/21/19 14:29 IOUS Past Med/Surg History Medical History CKD (chronic kidney disease) Crohns disease (Chronic) History of gout Hydronephrosis concurrent with and due to calculi of kidney and ureter Kidney stones (Chronic) Pulmonary emboli Surgical History H/O colectomy (Chronic) H/O cystoscopy for ureteral stones, has had ureteral stents placed before H/O ileostomy (Chronic) Family History Brother , due to stomach cancer Stomach cancer Father Myocardial infarction Mother Breast cancer Sister Pulmonary embolism Other FHx: heart disease Family history of diabetes mellitus Family history of high blood pressure Family history of kidney stones Social History Preferred Language: Nepalese Communication Ability: Effective Auto Tech Required: No Beliefs That Will Affect Care: None marital status: Current Living Situation: Spouse Feels Safe at Home: Yes Smoking Status: Never smoker Hx Alcohol Use: No Hx Substance Use: No Review of Systems See HPI for pertinent positives & negatives. and A total of 10 systems reviewed and were otherwise negative Physical Exam Vital Signs Vital Signs - 24 hr 11/22/19 09:28 11/22/19 11:12 Temperature 97.5 F L Temperature Source Oral Pulse Rate 64 Pulse Rate [Finger] 60 Pulse Rhythm [Finger] Regular Respiratory Rate 20 17 Respiratory Effort / Characteristics Non-Labored Spontaneous Non-Labored Spontaneous Respiratory Depth Normal Normal Respiratory Pattern Regular Regular Blood Pressure 150/87 H Blood Pressure [Left Arm] 140/74 Blood Pressure Mean 108 Blood Pressure Mean [Left Arm] 96 Pulse Oximetry 100 99 Oxygen Delivery Method Room Air Room Air Sepsis Recent Fever Within 48 Hours No Sepsis Action Taken by Nursing No Action Required GENERAL: Patient in mild distress. Alert, uncomfortable appearing, well nourished, non-toxic EYE EXAM: normal conjunctiva, PERRL and EOM's grossly intact OROPHARYNX: no exudate, no erythema, lips, buccal mucosa, and tongue normal and mucous membranes are moist NECK: supple, no nuchal rigidity, no adenopathy, non-tender LUNGS: Clear to auscultation. Normal chest wall mechanics HEART: no murmurs, S1 normal and S2 normal ABDOMEN: Ileostomy noted on right mid abdomen. Multiple well healed surgical scars. Tenderness to palpation in LLQ. Abdomen soft, normo-active bowel sounds, no masses, no rebound or guarding. BACK: Back is symmetrical on inspection and there is no deformity, no midline tenderness, no CVA tenderness. SKIN: no rashes and no bruising UPPER EXTREMITIES: upper extremities are grossly normal. FROM, nml pulses b/l. LOWER EXTREMITIES: No pitting edema. FROM, nml pulses b/l. NEURO EXAM: Normal sensorium, cranial nerves II-XII grossly intact, normal speech, no gross weakness of arms, no gross weakness of legs. Course Course 1008: The patient was evaluated in room B3B, and a complete history and physical examination were performed. 1122: I discussed the patient's case with Dr. Dumont - [facility] hospitalist. She will evaluate the patient for further management. 1126: I discussed the patient's case with Ally - urology [employer]. 1132: I updated the patient. Administered Medications Alfuzosin HCl (Uroxatral) 10 mg PO DAILY MEGAN Stop: 12/23/19 08:59 Last Admin: 11/23/19 11:04 Dose: 10 mg Documented by: [id number] Ciprofloxacin (Cipro) 500 mg PO Q12 MEGAN Stop: 11/23/19 18:00 Last Admin: 11/23/19 16:16 Dose: 500 mg Documented by: [id number] Hydromorphone HCl (Dilaudid) 0.5 mg IV Q2H PRN PRN Reason: Pain Stop: 12/06/19 17:36 Last Admin: 11/23/19 11:00 Dose: 0.5 mg Documented by: [id number] Admin: 11/23/19 07:38 Dose: 0.5 mg Documented by: [id number] Admin: 11/23/19 05:45 Dose: 0.5 mg Documented by: [id number] Admin: 11/23/19 02:24 Dose: 0.5 mg Documented by: [id number] Admin: 11/23/19 00:11 Dose: 0.5 mg Documented by: [id number] Admin: 11/22/19 22:10 Dose: 0.5 mg Documented by: [id number] Admin: 11/22/19 18:26 Dose: 0.5 mg Documented by: [id number] Sodium Chloride (Nss 1000ml) 1,000 mls @ 100 mls/hr IV .Q10H MEGAN Stop: 12/22/19 17:36 Last Admin: 11/23/19 12:40 Dose: 100 mls/hr Documented by: [id number] Infusion: 11/23/19 12:35 Dose: 0 mls/hr Documented by: [id number] Admin: 11/23/19 02:25 Dose: 100 mls/hr Documented by: [id number] Infusion: 11/23/19 02:25 Dose: 100 mls/hr Documented by: [id number] Admin: 11/22/19 18:22 Dose: 100 mls/hr Documented by: [id number] Ondansetron HCl (Zofran) 4 mg IV Q4H PRN PRN Reason: nausea Stop: 12/22/19 17:36 Last Admin: 11/23/19 07:36 Dose: 4 mg Documented by: [id number] Admin: 11/23/19 02:24 Dose: 4 mg Documented by: [id number] Admin: 11/22/19 18:26 Dose: 4 mg Documented by: [id number] Tamsulosin HCl (Flomax) 0.4 mg PO DAILY MEGAN Stop: 12/22/19 17:36 Last Admin: 11/23/19 11:03 Dose: 0.4 mg Documented by: [id number] Admin: 11/22/19 19:15 Dose: 0.4 mg Documented by: [id number] Discontinued Medications Hydromorphone HCl (Dilaudid) 0.5 mg IV Q15M PRN PRN Reason: Pain Stop: 12/06/19 12:13 Last Admin: 11/22/19 16:32 Dose: 0.5 mg Documented by: [id number] Admin: 11/22/19 14:44 Dose: 0.5 mg Documented by: [id number] Admin: 11/22/19 12:20 Dose: 0.5 mg Documented by: [id number] Sodium Chloride (Nss 1000ml) 1,000 mls @ 250 mls/hr IV .Q4H MEGAN Stop: 11/22/19 14:11 Last Infusion: 11/22/19 14:26 Dose: 0 mls/hr Documented by: [id number] Admin: 11/22/19 10:17 Dose: 250 mls/hr Documented by: [id number] Ciprofloxacin Lactate (Cipro / D5w) 200 mg in 100 mls @ 100 mls/hr IV PREOP MEGAN; Protocol Stop: 11/23/19 09:59 Last Infusion: 11/23/19 15:56 Dose: 0 mls/hr Documented by: [id number] Admin: 11/23/19 13:46 Dose: 100 mls/hr Documented by: [id number] Iothalamate Meglumine (Cysto-Conray Ii) Confirm Administered Dose 250 ml .ROUTE .STK-MED ONE Stop: 11/23/19 13:42 Last Admin: 11/23/19 14:43 Dose: Not Given Documented by: [id number] Morphine Sulfate (Morphine Sulfate) 4 mg IV NOW STA Stop: 11/22/19 10:12 Last Admin: 11/22/19 10:16 Dose: 4 mg Documented by: [id number] Morphine Sulfate (Morphine Sulfate) 4 mg IV NOW STA Stop: 11/22/19 11:07 Last Admin: 11/22/19 11:10 Dose: 4 mg Documented by: [id number] Ondansetron HCl (Zofran) 4 mg IV NOW STA Stop: 11/22/19 10:12 Last Admin: 11/22/19 10:16 Dose: 4 mg Documented by: [id number] Ondansetron HCl (Zofran) 4 mg IV NOW STA Stop: 11/22/19 12:15 Last Admin: 11/22/19 12:20 Dose: 4 mg Documented by: [id number] Medical Decision Making Differential Diagnosis Etiologies such as renal colic, appendicitis, diverticulitis, mesenteric ischemia, aortic pathology, infections, inflammatory bowel disease, PUD, biliary pathology, UTI, as well as others were entertained. Medical Records Attestation: I reviewed the patient's medical records. Home Medications Current Medication List: was personally reviewed by me Laboratory Data Attestation: I reviewed the patient's lab results. Result diagrams: 11/23/19 06:23 11/23/19 06:23 Lab Results 11/22/19 11/22/19 Range/Units 10:55 10:55 WBC 7.36 (4.8-10.8) K/uL RBC 4.25 L (4.7-6.1) M/uL Hgb 12.5 L (14.0-18.0) g/dL Hct 36.9 L (42-52) % MCV 86.8 (80-100) fL MCH 29.4 (25-34) pg MCHC 33.9 (32-36) g/dL RDW Std Deviation 47.3 H (36.4-46.3) fL RDW Coeff of Bradley 14.9 H (11.5-14.5) % Plt Count 151 (130-400) K/uL MPV 9.3 (7.4-10.4) fL Immature Gran % (Auto) 0.1 % Neut % (Auto) 75.2 % Lymph % (Auto) 13.5 % [place] % (Auto) 8.6 % Eos % (Auto) 2.3 % Baso % (Auto) 0.3 % Immature Gran # (Auto) 0.01 (0.00-0.02) K/uL Neut # (Auto) 5.54 (1.4-6.5) K/uL Lymph # (Auto) 0.99 L (1.2-3.4) K/uL [place] # (Auto) 0.63 H (0.11-0.59) K/uL Eos # (Auto) 0.17 (0-0.5) K/uL Baso # (Auto) 0.02 (0-0.2) K/uL Sodium 139 (136-145) mmol/L Potassium 4.0 (3.5-5.1) mmol/L Chloride 109 H (98-107) mmol/L Carbon Dioxide 24 (21-32) mmol/L Anion Gap 6.0 (3-11) BUN 26 H D (7-18) mg/dl Creatinine 2.44 H D (0.6-1.4) mg/dl Est Cr Clr Drug Dosing 38.4 ml/min Est GFR ( Amer) 32.8 Est GFR (Non-Af Amer) 28.3 BUN/Creatinine Ratio 10.8 (10-20) Glucose 87 (70-99) mg/dl Calcium 8.7 (8.5-10.1) mg/dl Total Bilirubin 1.7 H (0.2-1) mg/dl AST 11 L (15-37) U/L ALT 22 (12-78) U/L Alkaline Phosphatase 92 (45-117) U/L Total Protein 7.3 (6.4-8.2) gm/dl Albumin 3.9 (3.4-5.0) gm/dl Globulin 3.4 (2.5-4.0) gm/dl Albumin/Globulin Ratio 1.1 (0.9-2) Blood Pressure Blood Pressure Findings: Elevated blood pressure Blood Pressure Disposition: further management by hospitalist MDM Narrative Patient here uncomfortable appearing with known large kidney stone diagnosed earlier this week. Patient symptoms uncontrolled at home and after seeing urology yesterday, he was instructed to return for any worsening symptoms. Patient is found to have acute kidney injury. Patient started on IV fluid hydration and given multiple doses of IV pain control as well as antiemetics. Case discussed with hospitalist for additional evaluation and management given his other medical problems as well as with urology. Patient made aware of all results and was in agreement with plan. No evidence of bacteremia/sepsis. Patient was hemodynamically stable in the emergency room. Impression & Plan Abdominal pain, Renal colic, KENTRELL (acute kidney injury), Calculus of left ureter Discharge Plan Visit Data *Final* Discharge Date/Time: 11/22/19 17:17 Chief Complaint: Kidney Stone Stated Complaint: KEDNEY STONE ED Provider: Monie Araya Discharge Problem: Abdominal pain, Renal colic, KENTRELL (acute kidney injury), Calculus of left ureter Patient Disposition: Admitted As Inpatient Discharge Instructions Interventions: ED Discharge Assessment Last Done: 11/22/19 17:17 Discharge Problem: Abdominal pain Qualifiers: Abdominal location: left lower quadrant Qualified Code(s): R10.32 - Left lower quadrant pain The scribe's documentation has been prepared under my direction and personally reviewed by me in its entirety. I confirm that the note above accurately reflects all work, treatment, procedures, and medical decision making performed by me.
[2019-11-23 17:46] LABS: BUN Creatinine Ratio 7.5 (10-20); Calcium 8.1 mg/dl (8.5-10.1); Creatinine Clr Calc Pharmacy 23.2 ml/min; Est GFR (African American) 17.9; Est GFR (Non-African American) 15.4; Potassium 4.4 mmol/L (3.5-5.1)
[2019-11-24] MEDS ORDERED: CIPROFLOXACIN 500 MG TAB PO SCH (06:00)
[2019-11-24 07:49] LABS: Eosinophils # (auto) 0.04 K/uL (0-0.5); Eosinophils % (auto) 0.4 %; Hematocrit (blood only) 35.3 % (42-52); Hemoglobin 11.8 g/dL (14.0-18.0); Immature Granulocytes # (auto) 0.02 K/uL (0.00-0.02); Immature Granulocytes % (auto) 0.2 %; Lymphocytes # (auto) 1.01 K/uL (1.2-3.4); Mean Corpuscular Hemoglobin 29.1 pg (25-34); Mean Corpuscular Hgb Conc 33.4 g/dL (32-36); Mean Corpuscular Volume 87.2 fL (80-100); Mean Platelet Volume 9.5 fL (7.4-10.4); Monocytes # (auto) 0.62 K/uL (0.11-0.59); Monocytes % (auto) 6.8 %; Neutrophils # (auto) 7.49 K/uL (1.4-6.5); Neutrophils % (auto) 81.6 %; Platelet Count 140 K/uL (130-400); RDW Standard Deviation 47.9 fL (36.4-46.3); Red Blood Count 4.05 M/uL (4.7-6.1); White Blood Count 9.18 K/uL (4.8-10.8)
--- NOTE | 2019-11-24 08:13 | Urology Progress Note ---
Date of Service November 24, 2019 Assessment & Plan (1) Calculus of distal left ureter: (2) Hydronephrosis of left kidney: (3) Acute on chronic renal insufficiency: 59 year-old male patient admitted with intractable pain and vomiting secondary to 8mm left distal ureteral stone with moderate hydronephrosis. -POD #1 p cystoscopy, left retrograde pyelogram, left stent placement and laser lithotripsy by Dr. Ng. -Patient progressing as expected. -No reports of pain since procedure. -Remains Afebrile. -Labs reviewed, creatinine improved today to 3.05 (previously 4.03). -Continue to trend renal function. -Discussed expected clinical course with patient, including stent management. Al l questions answered. -Recommend discharge home with Flomax and 3-day course of antibiotic therapy, pain control if needed. -Will arrange follow-up with our service next week for stent removal and symptom check. -Patient in agreement with above plan. -Okay from perspective to discharge when medically stable. Thank you for allowing us to participate in the acute care of Mr. Cobos. Please reconsult us with additional questions, concerns or changes in patient status. Supervising Physician Co-Signing Physician Notes Pt long time patient who will encrust stent quickly . Will need to schedule stent removal in our office next Wednesday or Wednesday. Agreept ok for discharge with pain meds when medically stable Abner Mcgraw Subjective 59 year-old male patient POD#1 cystoscopy, left retrograde pyelogram, left stent placement and laser lithotripsy by Dr. Ng. Patient awake, alert, comfortable. Reports his pain has resolved since procedure. Feeling "much better". Denies fevers or chills. Denies nausea or vomiting, tolerating diet. Patient voiding spontaneously. Denies hematuria or dysuria. Denies urinary frequency or urgency. Has been out of bed without dizziness or lightheadedness. Creatinine improved to 3.05 (previously 4.03) Urine culture previously negative. Denies additional acute urologic concerns today. Review of Systems Constitutional: as per Subjective / HPI; no fever and no chills Gastrointestinal: as per Subjective / HPI; no nausea and no vomiting Genitourinary: + as per Subjective / HPI Neurologic: no dizziness and no syncope Physical Exam Constitutional: well developed and well nourished; no acute distress and not ill appearing Respiratory: normal respiratory effort and able to speak in complete sentences; no respiratory distress and no audible wheezes Gastrointestinal (Abdomen): Inspection/Auscultation: abdomen normal to inspection; abdomen not distended Percussion/Palpation: abdomen soft; abdomen nontender and no guarding Psychiatric: Orientation: alert, oriented x 3 and cooperative Affect: euthymic affect Genitourinary: no CVA tenderness Results & Data Vital Signs (Past 12 Hours) Vital Signs Temp Pulse Pulse Pulse Resp BP Pulse Ox 11/24/19 07:44 36.9 C 56 L 20 106/57 L 97 11/24/19 03:00 36.7 C 59 L 18 103/61 97 11/24/19 00:29 66 11/23/19 22:35 36.9 C 73 18 108/66 95 PG Care Time/CCT Total # of Minutes Spent Total Time Spent with Patient: Total time spent is greater than 50% in coordination of care (as documented) at patient's floor/unit and/or counseling patient: Coding Level of Care Code 01378 Subseq Hosp Care Lvl 2 Diagnoses Calculus of distal left ureter N20.1 Hydronephrosis of left kidney N13.30 Acute on chronic renal insufficiency N28.9; N18.9
--- NOTE | 2019-11-24 08:17 | Anesthesiology Progress Note ---
Date of Service November 24, 2019 Anesthesia Post Procedure Vital Signs Vital Signs: Temp Pulse Pulse Pulse Resp BP Pulse Ox 11/24/19 07:44 36.9 C 56 L 20 106/57 L 97 11/24/19 03:00 36.7 C 59 L 18 103/61 97 11/24/19 00:29 66 11/23/19 22:35 36.9 C 73 18 108/66 95 11/23/19 18:49 36.8 C 73 18 108/62 97 11/23/19 16:31 66 11/23/19 16:00 36.6 C 70 16 135/76 97 11/23/19 15:42 36.9 C 82 18 132/75 95 11/23/19 15:25 37.7 C H 72 13 125/71 95 11/23/19 15:15 37.7 C H 78 14 132/78 95 11/23/19 15:05 78 14 128/72 98 11/23/19 14:55 91 H 15 130/77 95 11/23/19 14:47 36.7 C 100 H 16 127/77 97 11/23/19 13:02 36.7 C 72 18 147/78 H 100 11/23/19 11:23 36.7 C 69 18 133/69 99 Pulse Ox 11/24/19 07:44 11/24/19 03:00 11/24/19 00:29 11/23/19 22:35 11/23/19 18:49 11/23/19 16:31 97 11/23/19 16:00 11/23/19 15:42 11/23/19 15:25 11/23/19 15:15 11/23/19 15:05 11/23/19 14:55 11/23/19 14:47 11/23/19 13:02 11/23/19 11:23 Pain Intensity Left Flank: Pain Intensity: 0 Notes Mental Status: alert / awake / arousable and participated in evaluation Patient Amnestic to Procedure: Yes Nausea / Vomiting: adequately controlled Pain: adequately controlled Airway Patency, RR, SpO2: stable & adequate BP & HR: stable & adequate Hydration State: stable & adequate Anesthetic Complications: no major complications apparent and Pt Satisfied with anesthetic care
[2019-11-24 08:24] LABS: Albumin Level 3.1 gm/dl (3.4-5.0); BUN Creatinine Ratio 9.3 (10-20); Calcium 8.6 mg/dl (8.5-10.1); Creatinine Clr Calc Pharmacy 30.6 ml/min; Est GFR (Non-African American) 21.6; Potassium 4.2 mmol/L (3.5-5.1)
[2019-11-24 08:29] LABS: Albumin Globulin Ratio 0.8 (0.9-2); Bilirubin,Total 1.3 mg/dl (0.2-1); Globulin 3.8 gm/dl (2.5-4.0); Total Protein 6.9 gm/dl (6.4-8.2)
[2019-11-24] MEDS: ALFUZOSIN HCL 10 MG TAB PO SCH (08:40)
[2019-11-24] MEDS: TAMSULOSIN HCL 0.4 MG CAP PO SCH (08:40)
[2019-11-24] MEDS: SODIUM CHLORIDE 0.9% 1000ML 1,000 ML IV SCH (09:06)
[2019-11-24 15:34] LABS: BUN Creatinine Ratio 11.3 (10-20); Calcium 8.7 mg/dl (8.5-10.1); Creatinine Clr Calc Pharmacy 32.5 ml/min; Est GFR (African American) 26.9; Est GFR (Non-African American) 23.3; Potassium 3.6 mmol/L (3.5-5.1)
[2019-11-28 14:34] LABS: Calculus Nidus Not Observed; Component 2 DNR; Source URETER STONE
--- NOTE | 2019-12-07 15:33 | Discharge Summary ---
Date of Service November 24, 2019 Admission HPI Per Admitting Provider The patient is a 59 years old male with past medical history of CKD stage III, recurrent nephrolithiasis, elevated prostate-specific antigen who presents to the emergency room with a complaint of left-sided flank pain for 3 days. Patient saw urology on November 20 and he was told to continue p.o. hydration in order to flush out 8 mm distal left ureteral calculus with moderate left hydro- ureteronephrosis. Patient has a history of cystine stones. At that visit patient was agreeable to schedule URS. Urine cultures were also checked and preliminary urine culture showed no growth while the final culture was pending. At that point patient was taking Cipro which was started in the ER. Patient was also given naproxen and Tylenol for pain and he was advised to consider tramadol for moderate pain. He was also recommended to continue Flomax which was prescribed in the ER. At the end of the visit patient was advised to be seen in the ER if fever, intractable vomiting or pain. Patient denies fever, chills, chest pain, shortness of breath, abdominal pain, frequency, urgency. Labs are reviewed: WBC 7.36, hemoglobin 12.5, hematocrit 36.9, platelets 151, sodium 139, potassium 4, chloride 109, carbon dioxide 24, anion gap 6, BUN 26, creatinine 2.44. Patient baseline creatinine is 1.4 -2. GFR 28.3, glucose 87, calcium 8.7, total bilirubin 1.7, AST 11, ALT 22, alkaline phosphatase 92, total protein 7.3, albumin 3.9, globulin 3.4, prostate-specific antigen from September is 7.91. Urine from November 19 shows trace urine protein, 1+ blood, urine nitrate negative, positive leukocyte Estrace, 2+ positive WBCs over 30, epithelial cells over 30 not a clean-catch. CT pelvis and abdomen shows 8 mm distal left ureteral calculus which results in moderate left hydroureteronephrosis with mild perinephritic infiltration. Left-sided nephrolithiasis. Market right renal atrophy. The decision was made to admit patient to [facility] on telemetry for nephrolithiasis and renal colic. Principal Diagnosis Acute obstructing left ureteral stone Discharge Exam Constitutional well developed, well nourished, + ill appearing and + diaphoretic; no acute distress Eyes PERRL, conjunctivae normal, anicteric sclerae ENMT external ear and nose normal, oropharynx normal Neck trachea midline, no thyromegaly Respiratory normal respiratory effort, lungs clear to auscultation Cardiovascular RRR, no murmur, no edema Gastrointestinal (Abdomen) normal bowel sounds, soft, nontender, no hepatosplenomegaly Musculoskeletal no cyanosis or clubbing, extremities motor strength 5/5 Skin no rashes, warm and dry Neurologic patellar DTR's 2+ bilat, sensation intact and PERRL, EOMI, accommodation nl, no face palsy, no dysarthria Psychiatric A+Ox3, euthymic affect Lymphatic no cervical or axillary lymphadenopathy Discharge Data Allergies Allergy/AdvReac Type Severity Reaction Status Date / Time promethazine AdvReac Mild JITTERY,ANX Verified 11/30/19 08:31 IOUS Consultations 11/22/19 17:37 Consult Urology Routine Procedures Performed Operation Date: 11/23/19 16:25 Actual Procedures p Cystoscopy Retrograde Pyelogram, Laser Lithotripsy (Left) - Rich Ng MD s Left Stent Placement, (Left) - Rich Ng MD Ordered Studies 11/23/19 12:00 FL retrograde includes kub Routine Hospital Course (1) Left flank pain: due to large, obstructing left ureteral stone evidence of KENTRELL, no evidence of UTI (urine culture on 11/19 was negative for growth) cystoscopy with stent placement and lithotripsy on 11/[address] Ng pain is significantly improved after procedure no hematuria urine output picked up after stent placed no further IV fluids needed Cr trending down d/c to home and follow up with urology (2) Calculus of left ureter: As discussed above s/p cystoscopy with stent and lithotripsy pain much better, essentially gone (3) Acute on chronic renal insufficiency: Patient has acute on chronic renal insufficiency, POA, Cr up to 2.4 Patient baseline creatinine is 1.4-2. Cr up to 4.0 on 11/22, not making much urine, this was prior to stent treated with IV fluid hydration Cr down to 3.0 and then 2.87 on 11/23 d/c to home, continue to stay well hydrated by mouth, check BMP outpatient in three days (4) Elevated prostate specific antigen (PSA): Continue monitoring, Referred to urology Total Time Total Time Spent Total Time Spent (In Minutes): 32 minutes Total Time Includes: Examination of the Patient, Discharge Planning, Medication Reconciliation and Communication With Other Providers (urology) Discharge Plan Discharge Items Patient Disposition: Home - Self-Care Reason For Visit: NEPHROLITHIASIS Discharge Diagnosis: Left ureteral stone s/p left stent placement and lithotripsy Acute kidney injury on CKD stage III, improving Condition on Discharge: Good Goals: follow up with urology next week for stent removal continue Flomax get repeat lab work on Sunday 11/26 Activity: Resume your previous activity Driving/Machine Use: Resume 1 day after discharge Weightbearing: Full weightbearing Non-emergency contact: Primary Care Provider and Urologist Call non-emergency contact if: you have any medication questions, your symptoms worsen, your pain is not controlled and you have a fever Follow-up/Referrals: Abner Mcgraw MD [Physician] - 11/28/19 10:00 am (Please keep follow-up with Dr. Mcgraw for stent removal. ) Marcelino Fuentes III, MD [Primary Care Provider] - 11/30/19 8:30 am (APT WITH JOSELUIS MENSAH) Diet: Regular Addtl Attending Provider Instructions: Medications: - CIPRO: take for three more days per urology, stop after dose on Wednesday morning - FLOMAX: continue to take 0.4mg daily, relaxes prostate - OXYCODONE: take as needed for any pain - NAPROXEN: DO NOT take this medication as your renal function still not recovered Left sided ureteral stone, treated with stent and lithotripsy pain resolved, making adequate urine creatinine was markedly elevated due to stone, obstruction creatinine improved to 3.0 this morning, down to 2.8 this afternoon, making urine get rest, stay well hydrated and well nourished avoid all NSAIDs (naproxen, ibuprofen) follow up for lab work on Wednesday or Wednesday with results to Dr. Fuentes follow up with Dr. Mcgraw at Urology office on 11/27 for stent removal Pending Studies at Discharge: No Stand-Alone Forms: My [employer], Smoking Cessation Medications and DC Order Prescriptions: Discontinued naproxen 500 mg tablet 500 mg PO Q12H PRN (Reason: pain) Qty: 20 RF: 0 No Action tamsulosin [Flomax] 0.4 mg capsule 0.4 mg PO DAILY Qty: 30 RF: 11 Discharge Orders: Discharge Order (Routine); Ordered 11/24/19 Ordered By: Ho Pepe Admission Data Admit Date/Time: 11/22/19 12:01 Attending Provider: Ho Pepe Admit Provider: Cleopatra Dumont Primary Care Provider: Marcelino Fuentes III Other Providers: Rich Ng Other Interventions: Discharge Summary Assessment (RN) Last Done: 11/24/19 16:34 DC Date/Time DO NOT enter until pt leaves facility: 11/24/19 17:35 Coding Level of Care Code D/C Day Management >30 mins Diagnoses Left flank pain R10.9 Calculus of left ureter N20.1 Acute on chronic renal insufficiency N28.9; N18.9 Elevated prostate specific antigen (PSA) R97.20
--- NOTE | 2019-12-11 06:47 | Coding Query ---
CODING QUERY To promote full compliance with coding requirements relating to patient care, provider participation is requested in all cases of professional caster uncertainty. Please assist us with the question(s) below: Coding Question(s): There is documentation of history of Crohns Disease. It is not clear if the patient was currently being treated for the Crohns Disease with chronic medication or if this is a history of Crohns Disease that is no longer being treated with chronic medication. The list of home medications documented is: Home Medications Medication Instructions Recorded Confirmed Type prednisone 20 mg PO TID 11/12/18 11/22/19 History diphenoxylate-atropine 2.5 1 tab PO QID PRN #30 tab 06/22/19 11/22/19 Rx mg-0.025 mg tablet alfuzosin 10 mg tablet,extended 10 mg PO DAILY #90 tab 11/07/19 11/22/19 Rx release 24 hr ciprofloxacin HCl [Cipro] 500 mg PO Q12H 7 Days #14 tab 11/20/19 11/22/19 Rx naproxen 500 mg PO Q12H PRN #20 tab 11/20/19 11/22/19 Rx ondansetron 4 mg PO Q8H PRN #10 tab 11/20/19 11/22/19 Rx oxycodone 5 mg PO Q6H PRN #12 tab 11/20/19 11/22/19 Rx tamsulosin [Flomax] 0.4 mg PO DAILY #7 cap 11/20/19 11/22/19 Rx Please specify below, regarding the Crohns Disease: ( ) Crohns Disease treated with chronic medication during the admission. Please Specify the medication ( x ) History of Crohns Disease not being treated with chronic medication during the admission ( ) Other: Please Specify Physician's Response(s): Thank you Nikky Ying Principal Diagnosis: "that condition established after study, to be chiefly responsible for occasioning the admission of the patient to the hospital for care." Co-Existing Principal Diagnosis: "when two or more diagnoses equally meet the criteria for principal diagnosis as determined by the circumstances of admission, diagnostic work up, and/or therapy provided, and the Alphabetic Index, Tabular List, or another coding guideline does not provide sequencing direction, any one of the diagnoses may be sequenced first." "When the physician has documented what appears to be a current diagnosis in the body of the record, but has not included the diagnosis in the final diagnostic statement, the physician should be asked whether the diagnosis should be added." (Source Coding [facility] 2 QTR90. p3-4) JEEVAN
== END 2019-11-24 17:35 | disposition home or self-care (01) | DRG 661 ==
LOC: ED 09:20 → SUATTDRO 12:01 → 2N 12:01

== ENCOUNTER 2025-03-11 13:22 | Inpatient (IN) ==
--- NOTE | 2025-03-11 13:37 | Emergency Department Note ---
Impression & Plan Bilateral ureteral calculi, Hydroureteronephrosis ED Provider Note HISTORY OF PRESENT ILLNESS: Patient is a 64-year-old male presenting with right flank pain. Patient reports that starting 3 days ago he had pain in his right low back and right flank that radiates around his right flank and into his right lower quadrant. He reports nausea but denies any vomiting or diarrhea. Denies any fevers. Denies any dysuria or hematuria, urinary frequency or hesitancy. He reports a history of kidney stones and states this feels similar. He has required surgical intervention for his stones previously, and reports his last surgical intervention was a few years ago. He denies any recent fevers. He describes the pain as a sharp and cramping sensation. He took Tylenol earlier this morning. He reports the pain has been progressively worse over the last 3 days. Denies any bowel or bladder incontinence. Patient has a history of an ileostomy secondary to total colectomy from Crohn's disease. He reports he is on daily 10 mg prednisone and tamsulosin. ROS: as above PHYSICAL EXAM: Constitutional: Patient appears in no acute distress. HENT: Head: Normocephalic and atraumatic. Eyes: EOMI, PERRL Mouth/Throat: Mucous membranes moist. Neck: Trachea midline. Neck supple. Cardiovascular: RRR, No murmurs, rubs or gallops. Intact distal pulses. Pulmonary/Chest: No respiratory distress. Breath sounds clear and equal bilaterally. No wheezes or rales. Abdominal: Abdomen soft, no tenderness, rebound or guarding. Ileostomy in place Back: No midline spinal tenderness, no paraspinal tenderness, no CVA tenderness. Musculoskeletal: No edema, tenderness or deformity noted. Skin: Warm and dry. No rash, erythema, pallor or cyanosis Psychiatric: Appropriate mood and affect for situation. Neurological: Alert and keenly responsive. CN II-XII grossly intact, moving all extremities equally and fully. MDM: - Vitals signs showed hypertension - History obtained via patient. History as above. - Chronic conditions affecting care: CKD; HLD; Crohn's disease (s/p total colectomy); PE - Differential diagnoses include, but are not limited to: Ureteral stone; pyelonephritis; UTI; colitis; ischemic colitis - Order placed for continuous cardiac monitoring. At this time, monitor showed rate of 70 bpm with normal sinus rhythm, per my interpretation. - External medical records reviewed. Urology visit note dated 11/28/2019 was reviewed. Patient has history of recurrent stones and has had cystoscopy and stent placement in the past. His most recent stent replacement was in November 2019. - Laboratory workup interpreted by myself showed leukocytosis (WBC 12.35) with neutrophil predominance; stable electrolytes; elevated creatinine (Cr 1.47); normal AST/ALT; normal lipase - Patient given 4 mg IV morphine, 500 cc normal saline, 4 mg IV Zofran for symptomatic management. However, on reassessment he is complaining of 10 out of 10 pain. Given 0.5 mg IV Dilaudid. - UA negative for infection - CT abdomen/pelvis with IV contrast showed atrophic right kidney with moderate hydroureteronephrosis due to a 5x7 mm stone 4.5 cm proximal to UVJ. Also noted to have new intrarenal stone in right kidney. - Discussed case with urologist process control programmer, Dr. Gatica, at 15:20. He inquired about the patient's n.p.o. status. I did discuss this with the patient and he reports he has not had anything to eat or drink since 7 AM on 03/11/2025. Dr. Gatica reports that he will add him to the OR schedule, given the patient having bilateral stones. Dr. Gatica requested medicine admission post-operatively. - Dr. Gatica reports that patient is an add-on to the OR schedule, with expected surgery time of around 4:35 PM. - Discussion was had with senior case manager about patient's case and need for admission - Hospitalist consulted for admission - Patient admitted to [facility] for further evaluation and management. ASSESSMENT AND PLAN: Diagnosis: Bilateral ureteral stones; hydroureteronephrosis Plan: Admit Past Med/Surg History Problem List (Updated 03/11/25 @ 15:27 by Sravani Thorpe MD) Hydroureteronephrosis (Acute) Bilateral ureteral calculi (Acute) Hyperlipidemia H/O ileostomy Hypovitaminosis D Acquired iron deficiency anemia due to decreased absorption Bilateral leg pain (Chronic) Numbness and tingling of leg Lipid screening Asthmatic bronchitis Encounter for health maintenance examination in adult Atrophy, kidney (Acute) right High prostate specific antigen (PSA) (Acute) Vitamin D deficiency (Acute) Urethral stricture Meatal stenosis Calculus of left ureter (Acute) Recurrent nephrolithiasis Gout (Chronic) CKD (chronic kidney disease), stage III Medical History Hyperlipidemia KENTRELL (acute kidney injury) Pulmonary emboli Hydronephrosis concurrent with and due to calculi of kidney and ureter CKD (chronic kidney disease) History of gout PE (pulmonary embolism) (08/15/13) Kidney stones Crohns disease Surgical History H/O cystoscopy for ureteral stones, has had ureteral stents placed before H/O ileostomy H/O colectomy Family History Brother Stomach cancer Father Myocardial infarction Mother Breast cancer Ovarian cancer Sister Pulmonary embolism Other FHx: heart disease Family history of diabetes mellitus Family history of high blood pressure Family history of kidney stones Denies family history of Prostate cancer Colorectal cancer Social History (Updated 10/04/24 @ 07:37 by ASAEL Mars) Smoking Status: Never smoker Second Hand Exposure: No; Do You Dip or Chew Tobacco: No; Hx Alcohol Use: No Hx Substance Use: No Preferred Language: Bermudian Communication Ability: Effective Production Administrative Assistant Required: No Beliefs That Will Affect Care: None marital status: Current Living Situation: Spouse current occupational status: employed current occupation: self employed Feels Safe at Home: Yes Childhood Exposure to Second-Hand Smoke: Yes (father smoked pipe) caffeine: Yes Dental Care, Regularly: Yes Physical Activity Frequency: Daily Seatbelt Use: always Sunscreen Use: No Assistive Devices: None Allergies Allergies Allergy/AdvReac Type Severity Reaction Status Date / Time promethazine AdvReac Mild JITTERY,ANX Verified 10/04/24 07:31 IOUS Home Meds Previous Rx's Medication Instructions Recorded ferrous sulfate 325 mg (65 mg 325 mg PO DAILY 30 days #30 tabs 12/25/22 iron) tablet rosuvastatin 5 mg tablet 5 mg PO DAILY #90 tabs 09/14/24 tamsulosin 0.4 mg capsule (Flomax) 0.4 mg PO DAILY #90 caps 09/14/24 benzonatate 100 mg capsule 100 mg PO .COMPLEX PRN cough #30 10/05/24 caps prednisone 10 mg tablet 10 mg PO DAILY #21 tabs 12/20/24 Results & Data (ED) Vital Signs Vital Signs - 24 hr 03/11/25 13:25 03/11/25 13:44 03/11/25 13:44 Temperature 36.9 C Temperature Source Temporal Artery Scan Pulse Rate 72 Pulse Rate [Apical] 67 Pulse Rate from SpO2 Sensor Respiratory Rate 18 18 Blood Pressure 156/84 H Blood Pressure [Left Arm] 156/80 H Blood Pressure Mean 108 Blood Pressure Mean [Left Arm] 105 Pulse Oximetry 98 97 95 Oxygen Delivery Method Room Air Sepsis Recent Fever Within 48 Hours No Sepsis New/Unexplained Change in Mental Status N/A Sepsis Action Taken by Nursing No Action Required 03/11/25 14:50 Temperature Temperature Source Pulse Rate 58 L Pulse Rate [Apical] Pulse Rate from SpO2 Sensor 58 L Respiratory Rate 13 Blood Pressure 154/83 H Blood Pressure [Left Arm] Blood Pressure Mean 106 Blood Pressure Mean [Left Arm] Pulse Oximetry 97 Oxygen Delivery Method Sepsis Recent Fever Within 48 Hours Sepsis New/Unexplained Change in Mental Status Sepsis Action Taken by Nursing Laboratory Data 03/11/25 13:42 03/11/25 13:42 Lab Results 03/11/25 03/11/25 Range/Units 13:40 13:42 WBC 12.35 H (4.8-10.8) K/ul RBC 4.39 L (4.70-6.10) M/uL Hgb 12.4 L (14.0-18.0) g/dl Hct 38.1 L (42.0-52.0) % MCV 86.8 (80.0-100.0) fL MCH 28.2 (25.0-34.0) pg MCHC 32.5 (32.0-36.0) g/dL RDW Std Deviation 49.3 H (36.4-46.3) fL RDW Coeff of Bradley 15.8 H (11.5-14.5) % Plt Count 196 (130-400) K/uL MPV 9.4 (9.4-12.4) fL Immature Gran % (Auto) 0.6 % Neut % (Auto) 90.0 % Lymph % (Auto) 6.2 % Blanco % (Auto) 3.0 % Eos % (Auto) 0.1 % Baso % (Auto) 0.1 % Neut # (Auto) 11.12 H (1.40-6.50) K/uL Lymph # (Auto) 0.77 L (1.20-3.40) K/uL Blanco # (Auto) 0.37 (0.11-0.59) K/uL Eos # (Auto) 0.01 (0.00-0.50) K/uL Baso # (Auto) 0.01 (0.00-0.20) K/uL Immature Gran # (Auto) 0.07 (0.01-0.20) K/uL Sodium 137 (136-145) mmol/L Potassium 4.2 (3.5-5.1) mmol/L Chloride 107 (98-107) mmol/L Carbon Dioxide 22 (21-32) mmol/L Anion Gap 8 (3-11) BUN 17 (6-23) mg/dl Creatinine 1.47 H (0.6-1.4) mg/dl Est Cr Clr Drug Dosing 58.7 ml/min eGFR 53.60 BUN/Creatinine Ratio 11.6 (10-20) Glucose 105 H (70-99(Fasting)) mg/dl Calcium 9.3 (8.6-10.3) mg/dl Total Bilirubin 1.0 (0.2-1.0) mg/dl AST 10 L (13-39) U/L ALT 13 (7-52) U/L Alkaline Phosphatase 71 (34-104) U/L Total Protein 7.2 (6.0-8.3) gm/dl Albumin 4.1 (3.4-5.0) gm/dl Globulin 3.1 (2.5-4.0) gm/dl Albumin/Globulin Ratio 1.3 (0.9-2) Lipase 17 (11-82) U/L Urine Color Yellow Urine Appearance Clear (Clear) Urine pH 5.5 (4.5-7.5) Ur Specific [place] 1.013 (1.000-1.030) Urine Protein Negative (Negative) Urine Glucose (UA) Negative (Negative) Urine Ketones Negative (Negative) Urine Blood 1+ H (Negative) Urine Nitrite Negative (Negative) Urine Bilirubin Negative (Negative) Urine Urobilinogen Negative (Negative) Ur Leukocyte Esterase Trace H (Negative) Urine WBC (Auto) 0-5 (0-5) /hpf Urine RBC (Auto) 0-2 (0-2) /hpf U Hyaline Cast (Auto) 0-2 (0-2) /lpf U Epithel Cells (Auto) 0-2 (0-2) /hpf Urine Bacteria (Auto) None Seen (None Seen) Urine Comment Administered Medications Discontinued Medications Hydromorphone HCl (Hydromorphone Inj 0.5 Mg/0.5 Ml Syr) 0.5 mg IV NOW STA Stop: 03/11/25 14:54 Last Admin: 03/11/25 14:56 Dose: 0.5 mg Documented By: MAHNAZ Sodium Chloride (Nss) 500 mls @ 999 mls/hr IV .Q31M ONE Stop: 03/11/25 14:04 Last Infusion: 03/11/25 14:48 Dose: Infused Documented By: Admin: 03/11/25 13:42 Dose: 999 mls/hr Documented By: KAYLA Ioversol (Optiray 320 100ml) 94 ml IV ONCE ONE Stop: 03/11/25 14:39 Last Admin: 03/11/25 14:39 Dose: 94 ml Documented By: LORENZO Morphine Sulfate (Morphine Sulfate 4 Mg/Ml 1 Ml Carp\Vial) 4 mg IV NOW STA Stop: 03/11/25 13:35 Last Admin: 03/11/25 13:42 Dose: 4 mg Documented By: KAYLA Ondansetron HCl (Ondansetron Inj 2 Mg/Ml 2 Ml Vial) 4 mg IV NOW STA Stop: 03/11/25 13:35 Last Admin: 03/11/25 13:42 Dose: 4 mg Documented By: KAYLA Imaging Data Radiologist's Impression: Abdomen/Pelvis CT 03/11/25 13:33 EXAM: CT Abdomen and Pelvis With Intravenous Contrast INDICATION: Right flank pain TECHNIQUE: Axial computed tomography images of the abdomen and pelvis with intravenous contrast. Sagittal and coronal reformatted images were created and reviewed. This CT exam was performed using one or more of the following dose reduction techniques: automated exposure control, adjustment of the mA and/or kV according to patient size, and/or use of iterative reconstruction technique. CONTRAST: 94ml of Optiray 320 was administered intravenously. COMPARISON: 11/12/2018 FINDINGS: Limitations: None. Lung bases: No abnormality noted. Pleural space: No visualized pleural effusion or pneumothorax. Heart: No abnormality noted. Mediastinum: No abnormality noted. ABDOMEN: Liver: No abnormality noted. Gallbladder and bile ducts: Small gallstone noted. No ductal dilatation or calcification. Pancreas: Homogeneous enhancement. No mass, inflammation or ductal dilation. Spleen: No significant abnormality noted. Adrenals: No significant abnormality noted. Kidneys and ureters: Atrophic enhancing right kidney with moderate hydroureteronephrosis. There is a 5 x 7 mm stone in the right ureter approximately 4.5 cm proximal to the UVJ. There is mild to moderate left hydroureteronephrosis with 2 stable stones just above the UVJ measuring approximately 5 and 7 mm. There is slight delay of the right nephrogram suggesting obstruction. There is now identified an approximate 9 mm stone in the right kidney. Previously seen left kidney stones are not identified. Stomach and bowel: Right lower quadrant ileostomy noted. No obstruction. Colectomy. PELVIS: Appendix: See above. Bladder: Previously seen hyperdense material in the urinary bladder is no longer present. No bladder gas or stone. Reproductive: Prominent prostate measures 4.6 x 5.2 x 5.6 cm long with a stable prominent median lobe. ABDOMEN and PELVIS: Intraperitoneal space: No free air. No significant fluid collection. Bones/joints: No acute changes. Soft tissues: Stable fatty replacement/lipoma of the lower right psoas muscle. Vasculature: No abdominal aortic aneurysm. Lymph nodes: No pathologically enlarged lymph nodes. IMPRESSION: 1. Stable atrophic right kidney with moderate hydroureteronephrosis secondary to a 5 x 7 mm stone approximately 4.5 cm proximal to the UVJ. 2. Mild to moderate left hydroureteronephrosis with 2 stones measuring approximately 5 and 7 mm which just above the left UVJ. Stones were seen in this location on the prior exam. It is uncertain whether these are new stones or the same stones. 3. New right intrarenal stone. Previously seen left kidney stones no longer identified. 4. Cholelithiasis. ACT 112: N/A Electronically signed by Marleni Chin 03-11-2025 3:11 PM Discharge Plan Visit Data Chief Complaint: Kidney Stone Stated Complaint: RIGHT SIDE PAIN, NAUSEA POSSIBLE KIDNEY STONE ED Provider: Sravani Thorpe Discharge Problem: Bilateral ureteral calculi, Hydroureteronephrosis Condition: Fair Forms Stand Alone Forms: [facility] [employer] Prescriptions Prescriptions: No Action rosuvastatin 5 mg tablet 5 mg PO DAILY Qty: 90 3RF tamsulosin [Flomax] 0.4 mg capsule 0.4 mg PO DAILY Qty: 90 3RF benzonatate 100 mg capsule 100 mg PO .COMPLEX PRN (Reason: cough) Qty: 30 1RF Rx Instructions: 100 mg orally 1 or 2 capsules every 8 hours as needed for cough. PRN; prednisone 10 mg tablet 10 mg PO DAILY Qty: 21 5RF ferrous sulfate 325 mg (65 mg iron) tablet 325 mg PO DAILY 30 Days Qty: 30 1RF Referrals Referrals: Pradip Adams DO [Primary Care Provider] -
[2025-03-11] MEDS: MoRPHine SULFATE 4 MG/ML 1 ML CARP\\VIAL IV STA (13:42)
[2025-03-11] MEDS: SODIUM CHLORIDE 0.9% 500 ML IV ONE (13:42)
[2025-03-11] MEDS: ONDANSETRON INJ 2 MG/ML 2 ML VIAL IV STA (13:42)
[2025-03-11 13:55] LABS: Basophils # (auto) 0.01 K/uL (0.00-0.20); Basophils % (auto) 0.1 %; Eosinophils # (auto) 0.01 K/uL (0.00-0.50); Eosinophils % (auto) 0.1 %; Hematocrit (blood only) 38.1 % (42.0-52.0); Hemoglobin 12.4 g/dl (14.0-18.0); Immature Granulocytes # (auto) 0.07 K/uL (0.01-0.20); Immature Granulocytes % (auto) 0.6 %; Lymphocytes # (auto) 0.77 K/uL (1.20-3.40); Lymphocytes % (auto) 6.2 %; Mean Corpuscular Hemoglobin 28.2 pg (25.0-34.0); Mean Corpuscular Hgb Conc 32.5 g/dL (32.0-36.0); Mean Corpuscular Volume 86.8 fL (80.0-100.0); Mean Platelet Volume 9.4 fL (9.4-12.4); Monocytes # (auto) 0.37 K/uL (0.11-0.59); Neutrophils # (auto) 11.12 K/uL (1.40-6.50); Platelet Count 196 K/uL (130-400); RDW Coefficient of Variation 15.8 % (11.5-14.5); RDW Standard Deviation 49.3 fL (36.4-46.3); Red Blood Count 4.39 M/uL (4.70-6.10); White Blood Count 12.35 K/ul (4.8-10.8)
[2025-03-11 14:04] LABS: Appearance Urine Clear (Clear); Bacteria Urine Automated None Seen (None Seen); Bilirubin Urine Negative (Negative); Blood Urine 1+ (Negative); Cast Urine Automated 0-2 /lpf (0-2); Color Urine Yellow; Epithelial Cell Urine Auto 0-2 /hpf (0-2); Glucose Urine UA Negative (Negative); Ketones Urine Negative (Negative); Leukocyte Esterase Urine Trace (Negative); Nitrite Urine Negative (Negative); Protein Urine Negative (Negative); RBC Urine Automated 0-2 /hpf (0-2); Specific Gravity Urine 1.013 (1.000-1.030); Urobilinogen Urine Negative (Negative); WBC Urine Automated 0-5 /hpf (0-5); pH Urine 5.5 (4.5-7.5)
[2025-03-11 14:25] LABS: Albumin Globulin Ratio 1.3 (0.9-2); Albumin Level 4.1 gm/dl (3.4-5.0); BUN Creatinine Ratio 11.6 (10-20); Calcium 9.3 mg/dl (8.6-10.3); Creatinine Clr Calc Pharmacy 58.7 ml/min; Globulin 3.1 gm/dl (2.5-4.0); Potassium 4.2 mmol/L (3.5-5.1); Total Protein 7.2 gm/dl (6.0-8.3)
[2025-03-11] MEDS: OPTIRAY 320 100ml IV ONE (14:39)
[2025-03-11] MEDS: HYDROmorphone INJ 0.5 MG/0.5 ML SYR IV STA (14:56)
--- NOTE | 2025-03-11 15:11 | CT Scan Report ---
EXAM: CT Abdomen and Pelvis With Intravenous Contrast INDICATION: Right flank pain TECHNIQUE: Axial computed tomography images of the abdomen and pelvis with intravenous contrast. Sagittal and coronal reformatted images were created and reviewed. This CT exam was performed using one or more of the following dose reduction techniques: automated exposure control, adjustment of the mA and/or kV according to patient size, and/or use of iterative reconstruction technique. CONTRAST: 94ml of Optiray 320 was administered intravenously. COMPARISON: 11/12/2018 FINDINGS: Limitations: None. Lung bases: No abnormality noted. Pleural space: No visualized pleural effusion or pneumothorax. Heart: No abnormality noted. Mediastinum: No abnormality noted. ABDOMEN: Liver: No abnormality noted. Gallbladder and bile ducts: Small gallstone noted. No ductal dilatation or calcification. Pancreas: Homogeneous enhancement. No mass, inflammation or ductal dilation. Spleen: No significant abnormality noted. Adrenals: No significant abnormality noted. Kidneys and ureters: Atrophic enhancing right kidney with moderate hydroureteronephrosis. There is a 5 x 7 mm stone in the right ureter approximately 4.5 cm proximal to the UVJ. There is mild to moderate left hydroureteronephrosis with 2 stable stones just above the UVJ measuring approximately 5 and 7 mm. There is slight delay of the right nephrogram suggesting obstruction. There is now identified an approximate 9 mm stone in the right kidney. Previously seen left kidney stones are not identified. Stomach and bowel: Right lower quadrant ileostomy noted. No obstruction. Colectomy. PELVIS: Appendix: See above. Bladder: Previously seen hyperdense material in the urinary bladder is no longer present. No bladder gas or stone. Reproductive: Prominent prostate measures 4.6 x 5.2 x 5.6 cm long with a stable prominent median lobe. ABDOMEN and PELVIS: Intraperitoneal space: No free air. No significant fluid collection. Bones/joints: No acute changes. Soft tissues: Stable fatty replacement/lipoma of the lower right psoas muscle. Vasculature: No abdominal aortic aneurysm. Lymph nodes: No pathologically enlarged lymph nodes. IMPRESSION: 1. Stable atrophic right kidney with moderate hydroureteronephrosis secondary to a 5 x 7 mm stone approximately 4.5 cm proximal to the UVJ. 2. Mild to moderate left hydroureteronephrosis with 2 stones measuring approximately 5 and 7 mm which just above the left UVJ. Stones were seen in this location on the prior exam. It is uncertain whether these are new stones or the same stones. 3. New right intrarenal stone. Previously seen left kidney stones no longer identified. 4. Cholelithiasis. ACT 112: N/A Electronically signed by Marleni Chin 03-11-2025 3:11 PM
--- NOTE | 2025-03-11 15:31 | Urology Consultation ---
Date of Consultation March 11, 2025 Assessment & Plan (1) Bilateral ureteral calculi: (2) Hydroureteronephrosis: Plan 64 yo M who presents with right flank pain. Afebrile with stable vitals. Cr 1.47, which appears to be roughly baseline. WBC 12. UA largely normal. CT scan shows moderate right hydronephrosis with obstructing distal ureteral calculus. Mild left hydronephrosis with two distal obstructing stones, which appear similar to previous CT scan, although he had left ureteroscopy in the interim. Apperas to have an intravesical component of prostate that may make stenting more challening. -Although patient is currently stable, given bilateral obstructing stones, recommended cystoscopy with bilateral stent placement this afternoon as he is appropriately NPO -Consent obtained. Discussed that his enlarged prostate may make stenting more challening, and if stents can't be placed, he would need to be sent to a tertiary care center where IR could place nephrostomy tubes as we do not have that capability here. -Ancef to OR History of Present Illness History of Present Illness 64 yo M who presents with right flank pain. Afebrile with stable vitals. Cr 1.47, which appears to be roughly baseline. WBC 12. UA largely normal. CT scan shows moderate right hydronephrosis with obstructing distal ureteral calculus. Mild left hydronephrosis with two distal obstructing stones, which appear similar to previous CT scan, although he had left ureteroscopy in the interim. Apperas to have an intravesical component of prostate that may make stenting more challening. Allergies Allergy/AdvReac Type Severity Reaction Status Date / Time promethazine AdvReac Mild JITTERY,ANX Verified 10/04/24 07:31 IOUS Home Medications Medication Instructions Recorded Confirmed Type tamsulosin 0.4 mg capsule (Flomax) 0.4 mg PO DAILY #90 caps 09/14/24 03/11/25 Rx prednisone 10 mg tablet 10 mg PO DAILY #21 tabs 12/20/24 03/11/25 Rx ferrous sulfate 325 mg (65 mg 325 mg PO UD 03/11/25 03/11/25 History iron) tablet rosuvastatin 5 mg tablet 5 mg PO UD 03/11/25 03/11/25 History Patient History Medical History KENTRELL (acute kidney injury) Pulmonary emboli Hydronephrosis concurrent with and due to calculi of kidney and ureter CKD (chronic kidney disease) History of gout PE (pulmonary embolism) (08/15/13) Kidney stones Crohns disease Surgical History H/O cystoscopy for ureteral stones, has had ureteral stents placed before H/O colectomy Family History Brother , due to stomach cancer Stomach cancer Father Myocardial infarction Mother Breast cancer Ovarian cancer Sister Pulmonary embolism Other FHx: heart disease Family history of diabetes mellitus Family history of high blood pressure Family history of kidney stones Denies family history of Prostate cancer Colorectal cancer Social History (Updated 10/04/24 @ 07:37 by ASAEL Mars) Smoking Status: Never smoker Second Hand Exposure: No; Do You Dip or Chew Tobacco: No; Hx Alcohol Use: No Hx Substance Use: No Preferred Language: Turkish Communication Ability: Effective Rn Security Required: No Beliefs That Will Affect Care: None marital status: Current Living Situation: Spouse current occupational status: employed current occupation: self employed Feels Safe at Home: Yes Childhood Exposure to Second-Hand Smoke: Yes (father smoked pipe) caffeine: Yes Dental Care, Regularly: Yes Physical Activity Frequency: Daily Seatbelt Use: always Sunscreen Use: No Assistive Devices: None Physical Exam Physical Exam: General: Alert and oriented, no acute distress HEENT: Normocephalic, mucous membranes moist Pulmonary: Nonlabored respirations Abdomen: Nondistended Extremities: Moves all 4 spontaneously Neuro: No gross deficits Skin: Warm, dry, no rashes noted Results & Data Vital Signs (Past 12 Hours) Vital Signs Temp Pulse Pulse Resp BP BP Pulse Ox 03/11/25 14:50 58 L 13 154/83 H 97 03/11/25 13:44 95 03/11/25 13:44 67 18 156/80 H 97 03/11/25 13:25 36.9 C 72 18 156/84 H 98 O2 Del Method 03/11/25 14:50 03/11/25 13:44 03/11/25 13:44 03/11/25 13:25 Room Air PG Care Time/CCT Total # of Minutes Spent Total Time Spent with Patient: Total time spent is greater than 50% in coordination of care (as documented) at patient's floor/unit and/or counseling patient: Coding Level of Care Code 14659 IN/OBS CONSULT LVL 3,45M Diagnoses Bilateral ureteral calculi N20.1 Hydroureteronephrosis N13.30
--- NOTE | 2025-03-11 15:34 | History & Physical Report ---
Date of Service March 11, 2025 Assessment & Plan (1) Hydroureteronephrosis: Plan: Madhu is a 64yo male with h/o multiple kidney stones, CKD3, enlarged prostate, dyslipidemia, and gout, who presented with right flank pain and is being admitted for management of bilateral kidney stones. Will remain NPO for ureteral stent placement this afternoon. Ureterolithiasis / hydronephrosis - Pt presented with right flank pain, no hematuria, fevers, or urinary sx. Has had kidney stones in the past and said this feels the same - Currently AFVSS. Labs notable for WBC of 12 and Cr of 1.47 and UA with 1+ blood and trace leuk esterase - CT A/P: Stable atrophic right kidney with moderate hydroureteronephrosis 2/2 obstructing distal ureteral calculus (5x7mm); mild-to-mod L hydroureteronephrosis with 2 distal obstructing stones (~5 and 7mm), also seen in prior imaging; new R intrarenal stone - Urology consulted; evaluated pt and recommended cystoscopy with bilateral stent placement this afternoon - Pt has been NPO and is scheduled for the OR CKD3 - Cr 1.47, which appears to be pt's baseline Gout - continue prednisone HLD - continue rosuvastatin Enlarged prostate - found elevated PSA level of 8.496 in Jun 2023; continue Tamsulosin Diet: NPO for procedure; then can resume regular Dispo: admit to med-surg; likely d/c tomorrow if stable after procedure Code: Full (2) Bilateral ureteral calculi: History of Present Illness Primary Care Provider: Pradip Adams DO Madhu is a 64yo male with h/o multiple kidney stones, CKD3, and gout, who presented with right flank pain. Sx began Wednesday and progressively increased. Initially, mild crampy pain somewhat relieved w/ Tylenol. Today, very severe and radiating to RLQ. Pt reports it feels like his previous kidney stones. No dysuria, increased frequency, hesitancy, or hematuria. No fevers, chills, CP, SOB, change in bowel habits. In the ED, his sx improved after Zofran, morphine, and Dilaudid. He was also given 2000mg IV cefazolin. He was seen by urology who determined best management would be stenting. Procedure was discussed with patient, who has had it done before and understands and agrees with this plan. Allergies Allergy/AdvReac Type Severity Reaction Status Date / Time promethazine AdvReac Mild JITTERY,ANX Verified 10/04/24 07:31 IOUS Home Medications Medication Instructions Recorded Confirmed Type tamsulosin 0.4 mg capsule (Flomax) 0.4 mg PO DAILY #90 caps 09/14/24 03/11/25 Rx prednisone 10 mg tablet 10 mg PO DAILY #21 tabs 12/20/24 03/11/25 Rx ferrous sulfate 325 mg (65 mg 325 mg PO UD 03/11/25 03/11/25 History iron) tablet rosuvastatin 5 mg tablet 5 mg PO UD 03/11/25 03/11/25 History Past Med/Surg History Problem List (Updated 03/11/25 @ 16:22 by Pradip Taveras MD) Encounter for pre-operative examination Hydroureteronephrosis (Acute) Bilateral ureteral calculi (Acute) Hyperlipidemia Hypovitaminosis D Bilateral leg pain (Chronic) Numbness and tingling of leg Lipid screening Encounter for health maintenance examination in adult Atrophy, kidney (Acute) right High prostate specific antigen (PSA) (Acute) Vitamin D deficiency (Acute) Urethral stricture Meatal stenosis Calculus of left ureter (Acute) Recurrent nephrolithiasis Gout (Chronic) CKD (chronic kidney disease), stage III Medical History (Updated 03/11/25 @ 16:22 by Pradip Taveras MD) Acquired iron deficiency anemia due to decreased absorption Asthmatic bronchitis KENTRELL (acute kidney injury) Pulmonary emboli Hydronephrosis concurrent with and due to calculi of kidney and ureter CKD (chronic kidney disease) History of gout PE (pulmonary embolism) (08/15/13) Kidney stones Crohns disease Surgical History (Updated 03/11/25 @ 16:22 by Pradip Taveras MD) H/O ileostomy H/O cystoscopy for ureteral stones, has had ureteral stents placed before H/O colectomy Family History Brother , due to stomach cancer Stomach cancer Father Myocardial infarction Mother Breast cancer Ovarian cancer Sister Pulmonary embolism Other FHx: heart disease Family history of diabetes mellitus Family history of high blood pressure Family history of kidney stones Denies family history of Prostate cancer Colorectal cancer Social History (Updated 10/04/24 @ 07:37 by ASAEL Mars) Smoking Status: Never smoker Second Hand Exposure: No; Do You Dip or Chew Tobacco: No; Hx Alcohol Use: No Hx Substance Use: No Preferred Language: Malay Communication Ability: Effective Title Manager Required: No Beliefs That Will Affect Care: None marital status: Current Living Situation: Spouse current occupational status: employed current occupation: self employed Feels Safe at Home: Yes Childhood Exposure to Second-Hand Smoke: Yes (father smoked pipe) caffeine: Yes Dental Care, Regularly: Yes Physical Activity Frequency: Daily Seatbelt Use: always Sunscreen Use: No Assistive Devices: None Review of Systems Review of Systems: Full ROS conducted and negative except as noted in HPI. Physical Exam Physical Exam: Gen: WD/WN, in NAD HEENT: NCAT, MMM, anicteric sclera CV: RRR, no m/r/g, S1/S2 normal Resp: CTAB, symmetrical chest rise, breathing non-labored Abd: Soft, NT/ND, +BS : significant tenderness to light palpation at right flank MSK: Full ROM, no gross abnormalities on visual inspection Skin: Warm, dry, well-perfused, no rashes Neuro: AOx3, CN II-XII grossly intact, no focal deficits Results & Data Results & Data Vital Signs (Past 12 Hours) Vital Signs Temp Pulse Pulse Resp BP BP Pulse Ox 03/11/25 14:50 58 L 13 154/83 H 97 03/11/25 13:44 95 03/11/25 13:44 67 18 156/80 H 97 03/11/25 13:25 36.9 C 72 18 156/84 H 98 O2 Del Method 03/11/25 14:50 03/11/25 13:44 03/11/25 13:44 03/11/25 13:25 Room Air Supervising Physician Co-Signing Physician Notes I personally examined the patient and verified all jain points of history and exam, discussed case, and agree with decision making with Dr Boss heading to OR shortly for stenting. has been through this before. no fevers no chills, nothing that suggests infection as well vitals noted nad heent nc at mmm breathing unlabored no accessory muscles good effort skin no rashes no pallor or icterus ureterolithiasis - for OR momentarily, overall per urology otherwise as above Resident Activity Tracking Resident Involvement: Resident Care Provided Care Provided: Adult [facility]
[2025-03-11] MEDS: ceFAZolin 2000MG 2,000 MG/15 ML SYR IV ONE (15:59)
[2025-03-11] MEDS ORDERED: fentaNYL citrate PF 100 MCG/2 ML VIAL ONE (16:11)
[2025-03-11] MEDS ORDERED: MIDAZOLAM HCL 1 MG/ML 2ML VIAL ONE (16:11)
[2025-03-11] MEDS ORDERED: ONDANSETRON INJ 2 MG/ML 2 ML VIAL ONE (16:12)
[2025-03-11] MEDS ORDERED: PROPOFOL IV EMULSION 10 MG/ML 20 ML VIAL IV ONE (16:12)
[2025-03-11] MEDS ORDERED: DEXAMETHASONE SOD INJ 4 MG/ML VIAL ONE (16:12)
[2025-03-11] MEDS ORDERED: LIDOCAINE 2% 2 ML VIAL/AMP(20MG/ML) INFIL ONE (16:12)
--- NOTE | 2025-03-11 16:22 | Anesthesiology Consultation ---
Date of Service March 11, 2025 Assessment & Plan (1) Encounter for pre-operative examination: Chart Review Chart Review: Acceptable Risk for Surgery History Surgery Operation Date: 03/11/25 16:30 Proposed Procedures p Cystoscopy Retrograde - Ahmet Gatica MD Height/Weight Height: 5 ft 10 in Weight: 89.6 kg Allergies Allergy/AdvReac Type Severity Reaction Status Date / Time promethazine AdvReac Mild JITTERY,ANX Verified 10/04/24 07:31 IOUS Medications Home Medications Medication Instructions Recorded Confirmed Last Taken tamsulosin 0.4 mg capsule (Flomax) 0.4 mg PO DAILY #90 caps 09/14/24 03/11/25 Unknown prednisone 10 mg tablet 10 mg PO DAILY #21 tabs 12/20/24 03/11/25 Unknown ferrous sulfate 325 mg (65 mg 325 mg PO UD 03/11/25 03/11/25 Unknown iron) tablet rosuvastatin 5 mg tablet 5 mg PO UD 03/11/25 03/11/25 Unknown Past Medical History Medical History (Updated 03/11/25 @ 16:22 by Pradip Taveras MD) Acquired iron deficiency anemia due to decreased absorption Asthmatic bronchitis KENTRELL (acute kidney injury) Pulmonary emboli Hydronephrosis concurrent with and due to calculi of kidney and ureter CKD (chronic kidney disease) History of gout PE (pulmonary embolism) (08/15/13) Kidney stones Crohns disease Past Family History Family History Brother , due to stomach cancer Stomach cancer Father Myocardial infarction Mother Breast cancer Ovarian cancer Sister Pulmonary embolism Other FHx: heart disease Family history of diabetes mellitus Family history of high blood pressure Family history of kidney stones Denies family history of Prostate cancer Colorectal cancer Past Surgical History Surgical History (Updated 03/11/25 @ 16:22 by Pradip Taveras MD) H/O ileostomy H/O cystoscopy for ureteral stones, has had ureteral stents placed before H/O colectomy Social History Smoking Status: Never smoker Do You Dip or Chew Tobacco: No Hx Alcohol Use: No Hx Substance Use: No Physical Exam Vital Signs Last Vital Signs Temp 36.9 C 03/11/25 13:25 Pulse 60 03/11/25 15:59 Resp 17 03/11/25 15:02 BP 143/79 H 03/11/25 15:30 Pulse Ox 96 03/11/25 15:02 O2 Del Method Room Air 03/11/25 13:25 Testing Laboratory Results 03/11/25 13:42 03/11/25 13:42 Urine Color Yellow 03/11/25 13:40 Urine Appearance Clear (Clear) 03/11/25 13:40 Urine pH 5.5 (4.5-7.5) 03/11/25 13:40 Ur Specific Linn 1.013 (1.000-1.030) 03/11/25 13:40 Urine Protein Negative (Negative) 03/11/25 13:40 Urine Glucose (UA) Negative (Negative) 03/11/25 13:40 Urine Ketones Negative (Negative) 03/11/25 13:40 Urine Nitrite Negative (Negative) 03/11/25 13:40 Ur Leukocyte Esterase Trace (Negative) H 03/11/25 13:40 Urine WBC (Auto) 0-5 /hpf (0-5) 03/11/25 13:40 Urine RBC (Auto) 0-2 /hpf (0-2) 03/11/25 13:40 U Hyaline Cast (Auto) 0-2 /lpf (0-2) 03/11/25 13:40 U Epithel Cells (Auto) 0-2 /hpf (0-2) 03/11/25 13:40 Urine Bacteria (Auto) None Seen (None Seen) 03/11/25 13:40
--- NOTE | 2025-03-11 16:30 | Billing Data ---
Date of Service March 11, 2025 Coding Level of Care Code 19899 INT INP/OBS CARE
[2025-03-11] MEDS ORDERED: DROPERIDOL 5 MG/2 ML VIAL ONE (16:42)
[2025-03-11] MEDS ORDERED: ATROPINE SULFATE 0.1 MG/ML 10ML SYR IV PRN (16:50)
[2025-03-11] MEDS ORDERED: fentaNYL citrate PF 100 MCG/2 ML VIAL IV PRN (16:50)
[2025-03-11] MEDS ORDERED: LABETALOL HCL IV 5 MG/ML 20ML IV PRN (16:50)
[2025-03-11] MEDS ORDERED: ONDANSETRON INJ 2 MG/ML 2 ML VIAL IV PRN (16:50)
[2025-03-11] MEDS: DIATRIZOATE MEGLUMINE 30% 100ML VIAL INSTIL PRN (16:56)
--- NOTE | 2025-03-11 17:02 | Operative Report ---
PG Post Operative Report Pre & Post Diagnosis Operation Date: 03/11/25 16:30 Pre-Op Diagnosis: (1) Bilateral ureteral calculi: (2) Hydroureteronephrosis: Post-Op Diagnosis: (1) Bilateral ureteral calculi: (2) Hydroureteronephrosis: I identified the patient and participated in the time-out.: Yes Procedure Operation Date: 03/11/25 16:30 Actual Procedures p Cystoscopy Bilateral Retrograde with radiographic interpretation, Bilateral Ureteral Stent Placement(Bilateral) - Ahmet Gatica MD Surgeon Ahmet Gatica MD Heavy Equipment Operator Apprentice None Estimated Blood Loss 0 Findings See Below Significantly enlarged prostate with large median lobe intravesical component. Left retrograde showed mild hydronephrosis, right retrograde showed moderate hydronephrosis. Bilateral stents in appropriate position. Specimens None Drains Bilateral 6 Qatari by 26 cm ureteral stents Anesthesia Type MAC Complications none Indications 64-year-old male with bilateral obstructing ureteral calculi Description of Procedure After informed consent was obtained, the patient was transported operative suite. MAC anesthesia was induced. The patient was placed in dorsal lithotomy position prepped and draped in a sterile fashion. They received preoperative Ancef for antibiotic prophylaxis. An appropriate surgical timeout was performed. A 22 Qatari rigid scope was inserted per urethra into the bladder. Jay cystoscopy revealed no stones or lesions. A very large median lobe component to his prostate. I turned my attention the left ureteral orifice and intubated this with a 5 Qatari open-ended catheter. A left retrograde pyelogram was shot which showed mild hydronephrosis. A sensor wire was advanced into the kidney and confirmed fluoroscopically. A 6 Qatari by 26 cm left ureteral stent was deployed with a good proximal coil in the renal pelvis and a good distal coil noted in the bladder. These were confirmed fluoroscopically and under direct vi sualization, respectively. I turned my attention the right ureteral orifice and intubated this with a 5 Qatari open-ended catheter. A right retrograde pyelogram was shot which showed moderate hydronephrosis. A sensor wire was advanced into the kidney and confirmed fluoroscopically. A 6 Qatari by 26 cm right ureteral stent was deployed with a good proximal coil in the renal pelvis and a good distal coil noted in the bladder, confirmed fluoroscopically and under direct visualization, respectively. The bladder was emptied and the scope was removed. This concluded the end of the case. All counts were correct at the end of the case. I was present, scrubbed, and actively participated for the entirety of the procedure. I attest to the content of the Intraoperative Record and any orders documented therein. Any exceptions are noted below.
--- NOTE | 2025-03-11 17:59 | Anesthesiology Progress Note ---
Date of Service March 11, 2025 Anesthesia Post Procedure Vital Signs Vital Signs: Temp Pulse Pulse Pulse Resp BP BP 03/11/25 17:54 36.3 C L 50 L 14 114/69 03/11/25 17:40 53 L 16 126/72 03/11/25 17:30 36.4 C L 53 L 13 126/72 03/11/25 17:20 58 L 12 118/71 03/11/25 17:10 55 L 17 127/68 03/11/25 17:03 36.1 C L 67 14 137/71 03/11/25 15:59 60 03/11/25 15:30 143/79 H 03/11/25 15:02 58 L 17 154/82 H 03/11/25 14:59 57 L 16 154/83 H 03/11/25 14:50 58 L 13 154/83 H 03/11/25 13:44 03/11/25 13:44 67 18 156/80 H 03/11/25 13:25 36.9 C 72 18 156/84 H Pulse Ox O2 Del Method 03/11/25 17:54 96 Room Air 03/11/25 17:40 97 Room Air 03/11/25 17:30 95 Room Air 03/11/25 17:20 96 Room Air 03/11/25 17:10 94 Room Air 03/11/25 17:03 94 Room Air 03/11/25 15:59 03/11/25 15:30 03/11/25 15:02 96 03/11/25 14:59 96 03/11/25 14:50 97 03/11/25 13:44 95 03/11/25 13:44 97 03/11/25 13:25 98 Room Air Pain Intensity Right Flank: Pain Intensity: 4 Transfer of Care Handoff Completed per policy Notes Mental Status: alert / awake / arousable Patient Amnestic to Procedure: Yes Nausea / Vomiting: adequately controlled Pain: adequately controlled Airway Patency, RR, SpO2: stable & adequate BP & HR: stable & adequate Hydration State: stable & adequate Anesthetic Complications: no major complications apparent
--- NOTE | 2025-03-12 07:49 | Hospitalist Progress Note ---
Date of Service March 12, 2025 Assessment & Plan (1) Hydroureteronephrosis: Plan: Madhu is a 64yo male with h/o multiple kidney stones, CKD3, enlarged prostate, dyslipidemia, and gout, who presented with right flank pain and is being admitted for management of bilateral kidney stones. Will remain NPO for ureteral stent placement this afternoon. Ureterolithiasis / hydronephrosis - Pt presented with right flank pain, no hematuria, fevers, or urinary sx. Has had kidney stones in the past and said this feels the same - Currently AFVSS. Labs notable for WBC of 12 and Cr of 1.47 and UA with 1+ blood and trace leuk esterase - CT A/P: Stable atrophic right kidney with moderate hydroureteronephrosis 2/2 obstructing distal ureteral calculus (5x7mm); mild-to-mod L hydroureteronephrosis with 2 distal obstructing stones (~5 and 7mm), also seen in prior imaging; new R intrarenal stone - Urology consulted; evaluated pt and recommended cystoscopy with bilateral stent placement this afternoon - Pt has been NPO and is scheduled for the OR CKD3 - Cr 1.47, which appears to be pt's baseline Gout - continue prednisone HLD - continue rosuvastatin Enlarged prostate - found elevated PSA level of 8.496 in Jun 2023; continue Tamsulosin Diet: NPO for procedure; then can resume regular Dispo: admit to med-surg; likely d/c tomorrow if stable after procedure Code: Full (2) Bilateral ureteral calculi: Admission and Anticipated Discharge Date Admission Date: March 11, 2025 Review of Systems Review of Systems: Full ROS conducted and negative except as noted in HPI. Results & Data Results & Data Vital Signs (Past 12 Hours) Vital Signs Temp Pulse Resp BP Pulse Ox O2 Del Method 03/12/25 07:02 36.5 C 55 L 20 138/76 97 Room Air 03/12/25 04:55 36.4 C L 56 L 16 132/74 97 Room Air 03/12/25 00:30 36.3 C L 55 L 14 118/72 97 Room Air 03/11/25 21:31 36.5 C 55 L 16 114/71 96 Room Air 03/11/25 20:30 36.3 C L 63 14 123/66 98 Room Air
--- NOTE | 2025-03-12 08:28 | Fluoroscopy Report ---
FL retrograde includes kub CLINICAL HISTORY: BILAT CYSTO STENT COMPARISON STUDY: None FLUOROSCOPY TIME: 13 seconds FLUOROSCOPY IMAGES: 5 EXPOSURE DOSE: 4 mGy FINDINGS: Fluoroscopy was provided for urologic procedure. IMPRESSION: Intraoperative fluoroscopy. ACT 112: Negative or not required by law. Electronically signed by: Harshad Rodgers M.D. 03/12/2025 8:26 AM
[2025-03-12 09:29] LABS: BUN Creatinine Ratio 9.9 (10-20); Calcium 9.2 mg/dl (8.6-10.3); Creatinine Clr Calc Pharmacy 60.8 ml/min
[2025-03-12] MEDS: ROSUVASTATIN CALCIUM 5 MG TAB PO SCH (09:32)
[2025-03-12] MEDS: predniSONE 10 MG TABLET PO SCH (09:32)
[2025-03-12] MEDS: TAMSULOSIN HCL 0.4 MG CAP PO SCH (09:32)
--- NOTE | 2025-03-12 09:35 | Urology Progress Note ---
Date of Service March 12, 2025 Assessment & Plan (1) Bilateral ureteral calculi: (2) Hydroureteronephrosis: Plan 64 year old male admitted with obstructing bilateral ureteral stones POD #1 s/p bilateral ureteral stent placement Feeling well, tolerating the stents with minimal bother Afebrile with stable vitals Labs - WBCs 12.35, Hgb 12.4, Creatinine 1.42 OK for discharge from perspective Will arrange outpatient follow-up with our service Continue Flomax and PRN pain management Urology will sign-off, can recall as needed Admission and Anticipated Discharge Date Admission Date: March 11, 2025 Subjective Pt seen at bedside today Awake and resting in bed on arrival No acute distress Tolerating the b/l stents with minimal bother Voiding without issue Denies hematuria or dysuria No fevers Review of Systems Constitutional: as per Subjective / HPI Genitourinary: + as per Subjective / HPI Physical Exam Constitutional: no acute distress Respiratory: no respiratory distress and no labored breathing Skin: No visible rashes or lesions to exposed skin areas Neurologic: awake Psychiatric: A+Ox3, euthymic affect Results & Data Vital Signs (Past 12 Hours) Vital Signs Temp Pulse Resp BP Pulse Ox O2 Del Method 03/12/25 07:02 36.5 C 55 L 20 138/76 97 Room Air 03/12/25 04:55 36.4 C L 56 L 16 132/74 97 Room Air 03/12/25 00:30 36.3 C L 55 L 14 118/72 97 Room Air PG Care Time/CCT Total # of Minutes Spent Total Time Spent with Patient: Total time spent is greater than 50% in coordination of care (as documented) at patient's floor/unit and/or counseling patient: Coding Level of Care Code 01544 SUB INP/OBS CARE 2/35MIN Diagnoses Bilateral ureteral calculi N20.1 Hydroureteronephrosis N13.30
[2025-03-12 11:10] VITALS: BP 123/73; PULSE 58; RESP 19; TEMP 97.9; O2SAT 98
--- NOTE | 2025-03-12 11:12 | Discharge Summary ---
Date of Service March 12, 2025 Admission HPI Per Admitting Provider Madhu is a 64yo male with h/o multiple kidney stones, CKD3, and gout, who presented with right flank pain. Sx began Wednesday and progressively increased. Initially, mild crampy pain somewhat relieved w/ Tylenol. Today, very severe and radiating to RLQ. Pt reports it feels like his previous kidney stones. No dysuria, increased frequency, hesitancy, or hematuria. No fevers, chills, CP, SOB, change in bowel habits. In the ED, his sx improved after Zofran, morphine, and Dilaudid. He was also given 2000mg IV cefazolin. He was seen by urology who determined best management would be stenting. Procedure was discussed with patient, who has had it done before and understands and agrees with this plan. Admission Exam Per Admitting Provider Constitutional: Patient appears in no acute distress. HENT: Head: Normocephalic and atraumatic. Eyes: EOMI, PERRL Mouth/Throat: Mucous membranes moist. Neck: Trachea midline. Neck supple. Cardiovascular: RRR, No murmurs, rubs or gallops. Intact distal pulses. Pulmonary/Chest: No respiratory distress. Breath sounds clear and equal bilaterally. No wheezes or rales. Abdominal: Abdomen soft, no tenderness, rebound or guarding. Ileostomy in place Back: No midline spinal tenderness, no paraspinal tenderness, no CVA tenderness. Musculoskeletal: No edema, tenderness or deformity noted. Skin: Warm and dry. No rash, erythema, pallor or cyanosis Psychiatric: Appropriate mood and affect for situation. Neurological: Alert and keenly responsive. CN II-XII grossly intact, moving all extremities equally and fully. Principal Diagnosis S/P bilateral ureteral stent placement for bilateral ureteral calculi Discharge Exam Constitutional: Patient appears in no acute distress. HENT: Head: Normocephalic and atraumatic. Eyes: EOMI, PERRL Mouth/Throat: Mucous membranes moist. Neck: Trachea midline. Neck supple. Cardiovascular: RRR, No murmurs, rubs or gallops. Intact distal pulses. Pulmonary/Chest: No respiratory distress. Breath sounds clear and equal bilaterally. No wheezes or rales. Abdominal: Abdomen soft, no tenderness, rebound or guarding. Ileostomy in place Back: No midline spinal tenderness, no paraspinal tenderness, no CVA tenderness. Musculoskeletal: No edema, tenderness or deformity noted. Skin: Warm and dry. No rash, erythema, pallor or cyanosis Psychiatric: Appropriate mood and affect for situation. Neurological: Alert and keenly responsive. CN II-XII grossly intact, moving all extremities equally and fully. Discharge Data Allergies Allergy/AdvReac Type Severity Reaction Status Date / Time promethazine AdvReac Mild JITTERY,ANX Verified 10/04/24 07:31 IOUS Consultations 03/11/25 15:30 Consult Urology Stat ED Decision to Admit Stat Procedures Performed Operation Date: 03/11/25 16:30 Actual Procedures p Cystoscopy Bilateral Retrograde, Bilateral Ureteral Stent Placement(Bilateral) - Ahmet Gatica MD Ordered Studies 03/11/25 FL retrograde includes kub Routine 03/11/25 13:33 CT Abd and Pelvis [CT abd pelvis IV con only] Stat Hospital Course (1) Hydroureteronephrosis: (2) Bilateral ureteral calculi: (3) Hyperlipidemia: (4) High prostate specific antigen (PSA): Claude Leung is a 64yo male with h/o multiple kidney stones, CKD3, enlarged prostate, dyslipidemia, and gout, who presented with right flank pain and was admitted for management of bilateral kidney stones. #S/P bilateral ureteral stent placement for bilateral ureteral calculi #Ureterolithiasis / hydronephrosis - Pt presented with right flank pain, no hematuria, fevers, or urinary sx. Has had kidney stones in the past and said this feels the same - Labs notable for WBC of 12 and Cr of 1.47 and UA with 1+ blood and trace leuk esterase - CT A/P: Stable atrophic right kidney with moderate hydroureteronephrosis 2/2 obstructing distal ureteral calculus (5x7mm); mild-to-mod L hydroureteronephrosis with 2 distal obstructing stones (~5 and 7mm), also seen in prior imaging; new R intrarenal stone - Urology consulted; evaluated pt and recommended cystoscopy with bilateral stent placement - S/P bilateral ureteral stent placement for bilateral ureteral calculi(03/11) - Discharge today(03/12) -Follow up urology outpatient. -Follow up with PCP next week CKD3 - Cr on discharge 1.42, which appears to be pt's baseline Gout - continue prednisone HLD - continue rosuvastatin Enlarged prostate - found elevated PSA level of 8.496 in Jun 2023; continue Tamsulosin Total Time Total Time Spent Total Time Spent (In Minutes): See attending attestation Discharge Plan Discharge Items Patient Disposition: Home - Self-Care Reason For Visit: KIDNEY STONES Discharge Diagnosis: S/P bilateral ureteral stent placement for bilateral ureteral calculi Condition on Discharge: Fair Activity: Per Instructions section Non-emergency contact: Primary Care Provider and Cor[employer] Sheeter Call non-emergency contact if: you have any medication questions, your symptoms worsen, your pain is not controlled and your pain is worsening Follow-up/Referrals: Pradip Adams DO [Primary Care Provider] - 03/20/25 1:00 pm Ahmet Gatica MD [Physician] - (THE UROLOGY OFFICE WILL CALL YOU WITH A HOSPITAL FOLLOW UP VISIT.) Diet: Regular Addtl Attending Provider Instructions: You presented to the hospital with flank pain. You had stent placed on Bilateral Ureter (03/11) You were doing well after the procedure and ready to go home. A discharge summary will be sent to your primary care physician to ensure continuity of care. Please bring this discharge summary with you to your next office appointment so that your provider can review it at that time. Medications: No new medications has been added in this visit. Please continue same home medications. Take OTC pain medications as needed for pain. Follow up appointments: - Make a follow up appointment with your PCP within the next week. It is very important that you follow up with them shortly after discharge from the hospital. - Keep all of your follow up appointments as already scheduled. If you cannot make an appointment, notify your provider. -Please followup with urology. Urology team will reach out to you regarding the schedule. 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 We are happy to assist you. The urology office will contact you to arrange a follow-up visit. While you have a ureteral stent in place: Some discomfort is normal. Certain movements may trigger pain or a feeling that you need to urinate. You may also feel mild soreness or pressure before or during urination. Your urine may be slightly pink or red. This is due to bleeding caused by minor irritation from the stent. This may happen on and off while you have the stent, it is not harmful and is to be expected. Medication to help minimize discomfort or bladder spasms, or to prevent infection may be prescribed. Take this as directed. Drink plenty of fluids to help flush out your urinary tract. When to call [facility] at [phone]: Your urine contains heavy blood clots You are constantly leaking urine Fever of 101F or higher, chills, nausea, or vomiting Your pain is not relieved with medication The end of the stent comes out of your urethra Pending Studies at Discharge: No Stand-Alone Forms: My [facility], Smoking Cessation Medications and DC Order Prescriptions: Continued tamsulosin [Flomax] 0.4 mg capsule 0.4 mg PO DAILY Qty: 90 3RF prednisone 10 mg tablet 10 mg PO DAILY Qty: 21 5RF ferrous sulfate 325 mg (65 mg iron) tablet 325 mg PO UD Rx Instructions: original:325mg po daily unable to verify rosuvastatin 5 mg tablet 5 mg PO UD Rx Instructions: original: 5 mg po daily unable to verify Discharge Orders: Discharge Order (Routine); Ordered 03/12/25 Ordered By: Timothy Villalobos Admission Data Admit Date/Time: 03/11/25 16:16 Attending Provider: Denise Jacinto Admit Provider: Ambika Boss Primary Care Provider: Pradip Adams Other Providers: Ahmet Gatica; Robert Mendoza Other Interventions: Discharge Summary Assessment (RN) Last Done: 03/12/25 11:50 Supervising Physician Co-Signing Physician Notes I personally examined the patient and verified jain points of history and exam, discussed case, and agree with decision making and plan documented by Dr. Villalobos. Patient is a 64-year-old male with admission for bilateral obstructing ureteral calculi and hydroureteronephrosis postop following bilateral ureteral stent placement 03/11/25. Patient reports resolution of symptoms, he remains afebrile, advanced diet, and voiding well. On exam patient appears comfortable, non diaphoretic, conjunctiva clear, mucosa moist, non-labored breathing, lungs clear to auscultation bilaterally, no rales/rhonchi/wheezing, heart with regular rate and rhythm, no murmur appreciated, bowel sounds present and no tenderness in the abdomen, lower extremities without edema. Outpatient urology appointment has been scheduled. Patient advised to followup with PCP. Total attending time 28 minutes.
== END 2025-03-12 12:25 | disposition home or self-care (01) | DRG 660 ==
LOC: ED 13:22 → 3N 16:15 → OR 16:15 → SUATTDRO 16:16 → 3N 16:16